=== PATIENT | female | born 1950 | race African-American/Black ===

== ENCOUNTER → 2017-10-20 | Day surgery (SDC) | payer MEDICARE ==
--- NOTE | 2017-10-21 11:56 | PATH ---
Surgical Pathology Report Patient Name: DONALDO GUERRERO [facility]. Rec. #: [id number] /Age/Gender: 1950 (Age: 67) / F Account: [id number] Location: [facility] Taken: 10/20/2017 Received: 10/20/2017 Reported: 10/21/2017 Physicians: Facundo Cummings M.D. Specimen(s) Received A: RIGHT BREAST SPECIMEN WITH CALCIFICATIONS B: RIGHT BREAST SPECIMEN WITHOUT CALCIFICATIONS Clinical History Nonpalpable lesion Mammographic findings: Microcalcification, suspicious Final Diagnosis A. 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 B. BREAST, RIGHT, WITHOUT CALCIFICATIONS, STEREOTACTIC BIOPSY: BENIGN BREAST TISSUE. Electronically Signed Roselia Rich M.D. Gross Description A. Received in formalin labeled "right breast with calcifications," are 4 flores-yellow, cylindrical portions of fibroadipose tissue ranging from 0.6-2.6 cm in length and averaging 0.2 cm in diameter. Entirely submitted in one cassette. B. Received in formalin labeled "right breast without calcifications," is a 2.2 x 1.6 x 0.3 cm aggregate of multiple flores-yellow, irregular to cylindrical portions of fibroadipose tissue. The formalin is filtered and the specimen is entirely submitted in one cassette. Time to formalin fixation: 5 minutes Total formalin fixation time: Approximately 6 hours. 10/20/201710/20/2017
== END | disposition home or self-care (01) ==
LOC: FMAMMOTONE 10:18
PROVIDERS: ATTEND Family Medicine
PROC: 0HBT3ZX Excision of Right Breast, Percutaneous Approach, Diagnostic (ICD-10-PCS; principal; 2017-10-20)
DX: D24.1 Benign neoplasm of right breast (principal); N64.89 Other specified disorders of breast; R92.1 Mammographic calcification found on diagnostic imaging of breast
CPT/HCPCS: 19081; 87899; 88305-TC; A4648

== ENCOUNTER 2018-07-06 16:08 | Inpatient (IN) | payer OTHER ==
[2018-07-06 16:28] VITALS: BMI 64.4
[2018-07-06] MEDS ORDERED: ALBUTEROL SO4 2.5/IPRATROPIUM 0.5 INH SOL 3 ML VIAL.NEB. NEB ONE ×4 (17:27→19:18)
[2018-07-06] MEDS ORDERED: LACTATED RINGERS SOLUTION 1000 ML INFUS.BAG IV ONE (17:46)
[2018-07-06 18:07] LABS: BASO % 0.7 % (0-2.0); EOS % 0.4 % (0-4.5); HEMOGLOBIN 13.8 GM/dL (10.7-15.3); MCHC 31.3 g/dl (32.0-36.0); MEAN CELL VOLUME 86.3 fl (80-96); MEAN PLT VOLUME 9.6 fl (7.5-11.1); NEUT % 54.9 % (42.8-82.8); PLATELET COUNT 173 K/MM3 (134-434); RDW 15.8 % (11.6-15.6); WHITE BLOOD COUNT 6.8 K/mm3 (4.0-10.0)
[2018-07-06] MEDS ORDERED: methylPREDNISolone NA SUCC 125 MG/2 ML VIAL IVPB ONE (18:08)
[2018-07-06] MEDS ORDERED: methylPREDNISolone NA SUCC 125 MG/2 ML VIAL ONE (18:09)
--- NOTE | 2018-07-06 18:12 | PDOC ---
Documentation entered by Kaylin Cuellar SCRIBE, acting as scribe for Cleo Bautista DO. Cleo Bautista DO: This documentation has been prepared by the Polo zimmerman Daisy, SCRIBE, under my direction and personally reviewed by me in its entirety. I confirm that the documentation accurately reflects all work, treatment, procedures, and medical decision making performed by me. Attending Attestation - Resident Resident Name: Nishant Bangura - ED Attending Attestation I have performed the following: I have examined & evaluated the patient, The case was reviewed & discussed with the resident, I agree w/resident's findings & plan - HPI HPI: 07/06/18 17:44 The patient is a 68 YOF with a PMH of DM, asthma, ID, and morbidly obese who presents to the ER for shortness of breath and cough productive of white sputum. She has been using her asthma pump at home, but did not use any nebulizers. Not on any home O2. She also admits to having a fever of 103 at home and last took Tylenol at 2PM. Denies any chest pain, leg swelling, N/V/D/C. Allergies: NKDA PCP: Dr. Nicole - Physicial Exam PE: 07/06/18 18:12 ADULT PHYSICAL EXAM Constitutional: Awake, alert, oriented. (+) conversational dyspnea. Cardiovascular: Regular rate. Regular rhythm. S1, S2 regular. Distal pulses are 2+ and symmetric. Pulmonary/Chest: (+) Tachypneic. (+) wheezing bilaterally. (+) rhonchorous breath sounds, right greater than left. Abdominal: (+) Morbidly obese. There is no tenderness. No rebound, guarding or rigidity. Good bowel sounds. Musculoskeletal: No edema in the legs. Skin: Skin is warm and dry. Neurological: Alert and oriented to person, place, and time. Cranial nerves II -XII are grossly intact. - Medical Decision Making 07/06/18 18:09 I, Dr. Cleo Bautista DO, attest that this document has been prepared under my direction and personally reviewed by me in its entirety. I further attest, that it accurately reflects all work, treatment, procedures and medical decision -making performed by me. 07/06/18 18:09 a/p: 68yo female with hx of asthma - last hospitalization last year with fever, cough white sputum and sob -will send labs -pt pulse ox 88 on 4L -does not wear home o2 -pt with conversational dyspnea and tachypnea -diffuse wheezing and rhonchi at the bases -concern for pna vs asthma with bronchitis - fever today of 103 at home, tylenol taken at 2p -will send labs, xray, ekg -will give nebs, steroids -will monitor and reassess 07/06/18 19:38 no elevated wbc chem pending hypoxic on abg with mild hypercapnic changes 07/06/18 20:01 cxr clear 07/06/18 22:20 pt with pna on ct still wheezing, still sob pulse ox 90 on 2L nc will give more albuterol and admit 07/06/18 22:20 iv abx ordered 07/06/18 22:38 microblog sent to [facility] for admission 07/06/18 22:51 case discussed with Heather who accepts pt for Dr. Portillo and [facility] covering Corey *DC/Admit/Observation/Transfer Diagnosis at time of Disposition: Asthma exacerbation, Hypoxia, Pneumonia - Discharge Dispostion Condition at time of disposition: Guarded Decision to Admit order: Yes - Referrals Referrals: Rupal Nicole MD [Primary Care Provider] - - Patient Instructions - Post Discharge Activity Heart Score/ECG Review - ECG Intrepretation Comment:: 07/06/18 19:39 sinus at 76, nl axis, nl interval, no acute st/t wave findings
[2018-07-06 18:26] LABS: ARTERIAL BLD GAS O2 SATURATION 87.2 % (95-98); ARTERIAL BLOOD GAS BASE EXCESS 3.6 meq/l (-2-2); ARTERIAL BLOOD GAS PCO2 61.6 mmHg (35-45); ARTERIAL BLOOD GAS PO2 58.6 mmHg (80-105); ARTERIAL BLOOD GAS pH 7.32 (7.35-7.45); CARBOXYHEMOGLOBIN 2.4 % (0-2)
[2018-07-06 18:28] LABS: ALLENS TEST POSITIVE
--- NOTE | 2018-07-06 18:58 | PDOC ---
History of Present Illness - General Chief Complaint: Shortness of Breath Stated Complaint: SHORTNESS OF BREATH Time Seen by Provider: 07/06/18 16:49 History Source: Patient, Old Records Exam Limitations: No Limitations - History of Present Illness Initial Comments: HPI: 68 y/o female BIBEMS to [facility] ER complaining of shortness of breath for the past several days. Endorses a productive cough with white sputum. Denies color change. Endorses fever to 103 at home today that resolved after taking Tylenol. Denies chest pain, neck pain, arm pain, or back pain. Has a h/o of asthma. Has been taking her medications as prescribed. Sought emergency care today at the urging of family after symptoms failed to resolve. Found to be hypoxic on room air by EMS. Initiated supplemental oxygen therapy. Did not administer any other medications. RN reports observing pt desat to 88% on room air while transferring to ED bed. Echo Mar 2018 revealed normal EF. Pt was admitted to this facility once in 2011 for asthma exacerbation. PCP: Dr. Nicole Social Hx: - Active everyday tobacco smoker Medical Hx: - Asthma - CAD S/p CA 2000 - Diabetes - Morbid obesity Review of Systems: In addition to that documented in the HPI above, the additional ROS was obtained : Constitutional: Endorses fevers or chills Head: Denies vision changes ENMT: Denies sore throat CV: Denies chest pain Resp: Per HPI GI: Denies vomiting or diarrhea : Denies painful urination MSK: Denies recent trauma Skin: Denies new rashes Neuro: Denies new numbness or tingling or weakness Endocrine: Denies polyuria Heme: Denies bleeding or bruising Physical Examination: Constitutional: Well-developed, well-nourished adult female in no acute distress or obvious discomfort. Obese body habitus. Found semi-fowlers on hospital bed. Alert and oriented x4. Answered all questions appropriately and completely. Speech was non-labored, non-pressured. Head: Normocephalic. No obvious external signs of trauma. Neck: Supple, trachea is midline. Cardiovascular / Chest: Regular rate and regular rhythm. No murmur, rubs, clicks, or gallops. Peripheral pulses: radial pulses full. No anterior chest wall tenderness. Respiratory: Tachypneic breathing without retractions. Equal chest rise and fall. Diffuse rhonchi and wheezing bilaterally. Gastrointestinal: abdomen is soft, non-tender, non-distended. Neuro: Alert and oriented. Moving all four extremities spontaneously. Skin: Warm, dry, and intact. Psych: Affect: appropriate. Mood: normal. MDM: *Reviewed vital signs, nursing notes, and prior visit documentation (if available). 68 y/o female w/ history significant for asthma presenting for worsening SOB, fever, and cough productive of white sputum. Hypoxic on room air, which improves with supplemental oxygen. Afebrile on arrival. Vitals unremarkable for hypotension or tachycardia. Physical exam as described above. Suspect possible moderately severe asthma exacerbation versus acute bronchitis versus pneumonia. CXR unremarkable for acute pulmonary pathology but limited secondary to body habitus. Will obtain CT of chest for better visualization. This pt does not frequently present to this facility. Acute respiratory acidosis noted on ABG. Chest CT revealed infiltrates in right middle lobe suggestive for pneumonia. Added Ceftriaxone to antibiotic regimen. Will admit pt for pneumonia causing acute hypoxia. ED Attending admitted pt to hospitalist service. Past History - Past Medical History Allergies/Adverse Reactions: Allergies Allergy/AdvReac Type Severity Reaction Status Date / Time No Known Allergies Allergy Verified 05/24/18 09:38 Home Medications: Ambulatory Orders Albuterol 0.083% Nebulizer Jyoti [Ventolin 0.083% Nebulizer Soln -] 1 neb NEB DAILY PRN 02/05/12 Acetaminophen [Tylenol .Regular Strength -] 650 mg PO Q8H PRN #0 tablet Aspirin [ASA -] 81 mg PO DAILY #0 tab.chew 02/16/12 Docusate Sodium [Colace -] 100 mg PO DAILY #0 capsule 02/16/12 Guaifenesin AC [Robitussin AC -] 5 ml PO Q6H PRN #0 liquid 02/16/12 Montelukast Na [Singulair -] 10 mg PO HS #0 tablet 02/16/12 Pantoprazole Sodium [Protonix -] 40 mg PO DAILY #0 tablet.ec 02/16/12 Tiotropium [place] [Spiriva] 1 inh IH DAILY #0 inh 02/16/12 levoFLOXacin [Levaquin -] 500 mg PO DAILY@0600 #3 tablet 02/16/12 predniSONE [Deltasone -] 5 mg PO BID #40 tablet 02/16/12 Asthma: Yes Cardiac Disorders: Yes (CA 2000) - Surgical History Abdominal Surgery: No Appendectomy: No Cardiac Surgery: No Cholecystectomy: No - Suicide/Smoking/Psychosocial Hx Smoking Status: Yes Smoking History: Current some day smoker Have you smoked in the past 12 months: No Number of Cigarettes Smoked Daily: 5 Information on smoking cessation initiated: No 'Breaking Loose' booklet given: 02/06/12 Hx Alcohol Use: No Drug/Substance Use Hx: No Substance Use Type: None Hx Substance Use Treatment: No *Physical Exam - Vital Signs Last Vital Signs Temp Pulse Resp BP Pulse Ox 98.1 F 74 20 111/57 L 91 L 07/06/18 16:23 07/06/18 16:25 07/06/18 16:23 07/06/18 16:23 07/06/18 16:25 Vital Signs - Vital Signs #1 Blood Pressure: 145/78 MAP: 100 BP Location: Right Arm Blood Pressure Position: Sitting Pulse Rate: 75 (SPO2 91% on 4 LPM via nasal cannula) ED Treatment Course - LABORATORY CBC & Chemistry Diagram: 07/06/18 17:37 07/06/18 17:37 - ADDITIONAL ORDERS Additional order review: Laboratory Results 07/06/18 07/06/18 18:09 17:37 Anticoagulation Therapy No Result Required. Puncture Site No Result Required. ABG pH 7.32 L ABG pCO2 at Pt Temp 61.6 H ABG pO2 at Pt Temp 58.6 L ABG HCO3 31.0 H ABG O2 Sat (Measured) 87.2 L ABG O2 Content 17.2 ABG Base Excess 3.6 H Anthony Test Positive Carboxyhemoglobin 2.4 H Methemoglobin 0.3 O2 Delivery Device No Result Required. Oxygen Flow Rate No Result Required. Vent Mode No Result Required. Vent Rate No Result Required. Mechanical Rate No Result Required. Pressure Support Vent No Result Required. Sodium Cancelled Potassium Cancelled Chloride Cancelled Carbon Dioxide Cancelled Anion Gap Cancelled BUN Cancelled Creatinine Cancelled Est GFR (CKD-EPI)AfAm Cancelled Est GFR (CKD-EPI)NonAf Cancelled Random Glucose Cancelled Calcium Cancelled Total Bilirubin Cancelled AST Cancelled ALT Cancelled Alkaline Phosphatase Cancelled Total Protein Cancelled Albumin Cancelled 07/06/18 17:37 RBC 5.10 MCV 86.3 MCHC 31.3 L RDW 15.8 H MPV 9.6 D Neutrophils % 54.9 Lymphocytes % 31.0 Monocytes % 13.0 H Eosinophils % 0.4 Basophils % 0.7 - RADIOLOGY Radiology Studies Ordered: Category Date Time Status CXRPORT [CHEST X-RAY PORTABLE*] [RAD] Stat Radiology 07/06/18 17:26 Completed - Medications Given in the ED: ED Medications Discontinued Medications Generic Name Dose Route Start Last Admin Trade Name Freq PRN Reason Stop Dose Admin Albuterol/Ipratropium 1 amp 07/06/18 17:27 07/06/18 17:38 Duoneb - NEB 07/06/18 17:28 1 amp ONCE ONE Administration Albuterol/Ipratropium 1 amp 07/06/18 17:45 07/06/18 17:57 Duoneb - NEB 07/06/18 17:46 1 amp ONCE ONE Administration Lactated Ringer's 1,000 ml 07/06/18 17:46 07/06/18 17:57 Lactated Ringers Solution IV 07/06/18 17:47 1,000 ml ONCE ONE Administration Methylprednisolone Sodium Succinate 125 mg 07/06/18 18:08 07/06/18 18:29 Solu-Medrol - IVPB 07/06/18 18:09 125 mg ONCE ONE Administration *DC/Admit/Observation/Transfer Diagnosis at time of Disposition: Hypoxia Asthma exacerbation Qualifiers: Asthma severity: moderate Asthma persistence: unspecified Qualified Code(s): J45.901 - Unspecified asthma with (acute) exacerbation Pneumonia Qualifiers: Pneumonia type: due to unspecified organism Laterality: right Lung location: middle lobe of lung Qualified Code(s): J18.1 - Lobar pneumonia, unspecified organism - Discharge Dispostion Condition at time of disposition: Guarded - Referrals - Patient Instructions - Post Discharge Activity
[2018-07-06] MEDS ORDERED: AZITHROMYCIN 250 MG TABLET PO ONE (19:05)
[2018-07-06] MEDS ORDERED: AZITHROMYCIN 250 MG TABLET ONE (19:19)
[2018-07-06] MEDS ORDERED: ACETAMINOPHEN 325 MG TABLET (FP) PO ONE (20:01)
[2018-07-06 20:19] LABS: ALBUMIN 3.6 g/dl (3.4-5.0); BILIRUBIN,TOTAL 0.4 mg/dL (0.2-1); CALCIUM 9.1 mg/dL (8.5-10.1); N-TERMINAL BNP 172.7 pg/ml (5-125); POTASSIUM 4.4 mmol/L (3.5-5.1); TOT PROT 7.8 g/dl (6.4-8.2)
[2018-07-06] MEDS ORDERED: ACETAMINOPHEN 325 MG TABLET (FP) ONE (20:38)
[2018-07-06] MEDS ORDERED: CEFTRIAXONE 1,000 MG in DEXTROSE 5%-WATER - 50 ML IVPB ONE (22:02)
[2018-07-06] MEDS ORDERED: ALPRAZolam 0.25 MG TABLET PO ONE (23:28)
--- NOTE | 2018-07-06 23:28 | HP ---
CHIEF COMPLAINT: cough with white phlegm for 2 days and shortness of breath PCP:Dr. Nicole HISTORY OF PRESENT ILLNESS: 68 year old morbid obese female with history of hyperlipidemia, hypertension, diabetes mellitus, COPD(asthma/emphysema), not on home oxygen therapy, ongoing tobacco use, and possible CAD as she is planned for coronary angiogram arranged for next week at [facility] to exclude CAD who presents with symptoms of shortness of breath,cough with sputum for the past 2 days and fever of 103 and took Tylenol today at 2pm . On presentation to ER she had hypoxia. CT scan of chest demonstrated a pneumonia. She was given 3 duo nebulizer treatments, IV solumedrol and initiated on IV antibiotic therapy with Rocephin and Azithromycin. She denied any symptoms of chest discomfort. She is being admitted to the Medicine Service for further medical management. Recent Travel: denies PAST MEDICAL HISTORY: hyperlipidemia hypertension diabetes mellitus COPD(asthma/emphysema) PAST SURGICAL HISTORY: none Social History: Smoking:yes Alcohol:no Drugs: no Family History: noncontributory Allergies No Known Allergies Allergy (Verified 05/24/18 09:38) HOME MEDICATIONS: Home Medications Medication Instructions Recorded Albuterol 0.083% Nebulizer Jyoti 1 neb NEB DAILY PRN 02/05/12 [Ventolin 0.083% Nebulizer Soln -] Acetaminophen [Tylenol .Regular 650 mg PO Q8H PRN #0 tablet 02/16/12 Strength -] Aspirin [ASA -] 81 mg PO DAILY #0 tab.chew 02/16/12 Docusate Sodium [Colace -] 100 mg PO DAILY #0 capsule 02/16/12 Guaifenesin AC [Robitussin AC -] 5 ml PO Q6H PRN #0 liquid 02/16/12 Montelukast Na [Singulair -] 10 mg PO HS #0 tablet 02/16/12 Pantoprazole Sodium [Protonix -] 40 mg PO DAILY #0 tablet.ec 02/16/12 Tiotropium [place] [Spiriva] 1 inh IH DAILY #0 inh 02/16/12 levoFLOXacin [Levaquin -] 500 mg PO DAILY@0600 #3 tablet 02/16/12 predniSONE [Deltasone -] 5 mg PO BID #40 tablet 02/16/12 REVIEW OF SYSTEMS CONSTITUTIONAL: Absent: fever, chills, diaphoresis, generalized weakness, malaise, loss of appetite, weight change HEENT: Absent: rhinorrhea, nasal congestion, throat pain, throat swelling, difficulty swallowing, mouth swelling, ear pain, eye pain, visual changes CARDIOVASCULAR: Absent: chest pain, syncope, palpitations, irregular heart rate, lightheadedness , peripheral edema RESPIRATORY: Absent: cough, shortness of breath, dyspnea with exertion, orthopnea, wheezing, stridor, hemoptysis GASTROINTESTINAL: Absent: abdominal pain, abdominal distension, nausea, vomiting, diarrhea, constipation, melena, hematochezia GENITOURINARY: Absent: dysuria, frequency, urgency, hesitancy, hematuria, flank pain, genital pain MUSCULOSKELETAL: Absent: myalgia, arthralgia, joint swelling, back pain, neck pain SKIN: Absent: rash, itching, pallor HEMATOLOGIC/IMMUNOLOGIC: Absent: easy bleeding, easy bruising, lymphadenopathy, frequent infections ENDOCRINE: Absent: unexplained weight gain, unexplained weight loss, heat intolerance, cold intolerance NEUROLOGIC: Absent: headache, focal weakness or paresthesias, dizziness, unsteady gait, seizure, mental status changes, bladder or bowel incontinence PSYCHIATRIC: Absent: anxiety, depression, suicidal or homicidal ideation, hallucinations. PHYSICAL EXAMINATION Vital Signs - 24 hr 07/06/18 07/06/18 07/06/18 16:23 16:25 19:34 Temperature 98.1 F Pulse Rate 74 74 Pulse Rate [#1] 75 Respiratory 20 Rate Blood Pressure 111/57 L Blood Pressure 145/78 [#1] O2 Sat by Pulse 91 L 91 L Oximetry (%) GENERAL: awake, alert, and fully oriented no acute distress HEAD: normal EYES: pupils equal round and reactive to light EARS, NOSE, THROAT: ears normal nares patent oropharynx clear without exudates NECK:supple no JVD LUNGS:+ wheezing no use of accessory muscles no rales nonlabored breathing effort HEART: regular rate and rhythm normal S1 and S2 ABDOMEN: soft and large no acute abdomen nontender MUSCULOSKELETAL:limited range of motion of lower extremities ambulates with a cane UPPER EXTREMITIES: 2+ pulses warm well-perfused no cyanosis LOWER EXTREMITIES: 2+ pulses warm well-perfused no pitting edema NEUROLOGICAL:normal speech Mood: good eye contact appropriate mood and affect SKIN: warm dry normal turgor no rashes or lesions noted normal capillary refill Laboratory Results - last 24 hr 05/11/1607/06/18 07/06/18 17:37 17:37 17:37 WBC 6.8 RBC 5.10 Hgb 13.8 Hct 44.0 MCV 86.3 MCH 27.0 MCHC 31.3 L RDW 15.8 H Plt Count 173 MPV 9.6 D Absolute Neuts (auto) 3.7 Neutrophils % 54.9 Lymphocytes % 31.0 Monocytes % 13.0 H Eosinophils % 0.4 Basophils % 0.7 Nucleated RBC % 0 Anticoagulation Therapy Puncture Site ABG pH ABG pCO2 at Pt Temp ABG pO2 at Pt Temp ABG HCO3 ABG O2 Sat (Measured) ABG O2 Content ABG Base Excess Anthony Test Carboxyhemoglobin Methemoglobin O2 Delivery Device Oxygen Flow Rate Vent Mode Vent Rate Mechanical Rate Pressure Support Vent Sodium Cancelled 138 Potassium Cancelled 4.4 Chloride Cancelled 102 Carbon Dioxide Cancelled 31 Anion Gap Cancelled 6 L BUN Cancelled 15 Creatinine Cancelled 1.0 Est GFR (CKD-EPI)AfAm Cancelled 67.51 Est GFR (CKD-EPI)NonAf Cancelled 58.25 Random Glucose Cancelled 109 H Calcium Cancelled 9.1 Total Bilirubin Cancelled 0.4 AST Cancelled 28 ALT Cancelled 22 Alkaline Phosphatase Cancelled 87 Troponin I 0.04 B-Natriuretic Peptide 172.7 H Total Protein Cancelled 7.8 Albumin Cancelled 3.6 07/06/18 18:09 WBC RBC Hgb Hct MCV MCH MCHC RDW Plt Count MPV Absolute Neuts (auto) Neutrophils % Lymphocytes % Monocytes % Eosinophils % Basophils % Nucleated RBC % Anticoagulation Therapy No Result Required. Puncture Site No Result Required. ABG pH 7.32 L ABG pCO2 at Pt Temp 61.6 H ABG pO2 at Pt Temp 58.6 L ABG HCO3 31.0 H ABG O2 Sat (Measured) 87.2 L ABG O2 Content 17.2 ABG Base Excess 3.6 H Anthony Test Positive Carboxyhemoglobin 2.4 H Methemoglobin 0.3 O2 Delivery Device No Result Required. Oxygen Flow Rate No Result Required. Vent Mode No Result Required. Vent Rate No Result Required. Mechanical Rate No Result Required. Pressure Support Vent No Result Required. Sodium Potassium Chloride Carbon Dioxide Anion Gap BUN Creatinine Est GFR (CKD-EPI)AfAm Est GFR (CKD-EPI)NonAf Random Glucose Calcium Total Bilirubin AST ALT Alkaline Phosphatase Troponin I B-Natriuretic Peptide Total Protein Albumin ASSESSMENT/PLAN: 68 year old morbidly obese female with history of hyperlipidemia, hypertension, diabetes mellitus, COPD(asthma/emphysema),not on home oxygen therapy, ongoing tobacco use, and possible CAD as she is planned for coronary angiogram as arranged for next week at [facility] to exclude CAD who presents with symptoms of shortness of breath and cough with sputum for the past 2 days and on presentation to ER with hypoxia. She had no evidence of tachycardia. She was febrile with a temperature of 103. She was found to have a pneumonia and an asthma exacerbation. She is being admitted to the Medicine Service for further medical treatment. Shortness of breath secondary to Pneumonia Currently afebrile, no leukocytosis.BNP 172. CT scan of chest demonstrated pneumonia, a paratracheal lymph node and a trace pericardial effusion, no evidence of hypotension - continue with IV Azithromycin and Ceftriaxone Asthma Exacerbation/History COPD Oxygen saturation ranging in the low 90's on 4 liters by nasal canula -Continue with IV solumedrol -Continue with albuterol nebulizer treatments every 6 hours -Pulmonary -Dr. Gupta consulted for management Hypertension -SBP 110-140's, currently on no home meds -continue to monitor blood pressure closely and would add antihypertensive therapy if blood pressures remain borderline elevated Diabetes Mellitus -Accucheks before meals and at bedtime -Insulin as per sliding scale Hyperlipidemia - currently on no lipid lowering agents - check fasting lipid panel in am Possible CAD due to Risk Factors Asymptomatic of angina. She is euvolemic on exam. Troponin is normal. Pending coronary angiogram as arranged in outpatient setting for next week at [facility]. -continue with aspirin. DVT -lovenox 40 mg once daily for prophylaxsis. TEDS and SCD's FEN ADA diet, low sodium, heart healthy diet Visit type - Emergency Visit Emergency Visit: No - New Patient This patient is new to me today: Yes Date on this admission: 07/07/18 - Critical Care Critical Care patient: No
[2018-07-07] MEDS ORDERED: ALBUTEROL SO4 0.083% IH SOL 2.5 MG/3 ML VIAL.NEB. NEB ONE ×2 (00:21→09:33)
[2018-07-07] MEDS ORDERED: ALPRAZolam 0.25 MG TABLET ONE (00:22)
[2018-07-07] MEDS ORDERED: CEFTRIAXONE 1 GM/50 ML BAG ONE (00:22)
[2018-07-07] MEDS: ALBUTEROL SO4 0.083% IH SOL 2.5 MG/3 ML VIAL.NEB. NEB SCH ×9 (01:07→20:28)
[2018-07-07] MEDS ORDERED: ALBUTEROL SO4 2.5/IPRATROPIUM 0.5 INH SOL 3 ML VIAL.NEB. NEB ONE (02:17)
[2018-07-07] MEDS ORDERED: methylPREDNISolone NA SUCC 40 MG/1 ML VIAL ONE (05:08)
[2018-07-07] MEDS: methylPREDNISolone NA SUCC 40 MG/1 ML VIAL IVPUSH SCH ×4 (05:51→22:33)
[2018-07-07 09:43] LABS: HEMATOCRIT 45.1 % (32.4-45.2); HEMOGLOBIN 14.1 GM/dL (10.7-15.3); MCH 27.2 pg (25.7-33.7); MCHC 31.2 g/dl (32.0-36.0); MEAN CELL VOLUME 87.1 fl (80-96); MEAN PLT VOLUME 9.2 fl (7.5-11.1); PLATELET COUNT 168 K/MM3 (134-434); RBC 5.18 M/mm3 (3.60-5.2); RDW 15.5 % (11.6-15.6); WHITE BLOOD COUNT 5.9 K/mm3 (4.0-10.0)
[2018-07-07] MEDS: DOCUSATE SODIUM 100 MG CAPSULE (FP) PO SCH (09:50)
[2018-07-07] MEDS: ASPIRIN 81 MG CHEWABLE TABLETS PO SCH (09:50)
[2018-07-07] MEDS: CEFTRIAXONE 1 GM in DEXTROSE 5%-WATER - 50 ML IVPB SCH (09:51)
[2018-07-07] MEDS: PANTOPRAZOLE 40 MG TABLET (FP) PO SCH (09:51)
[2018-07-07] MEDS: ENOXAPARIN NA (PORCINE) 40 MG/0.4 ML DISP.SYRIN SQ SCH (09:51)
[2018-07-07 10:05] LABS: CALCIUM 9.6 mg/dL (8.5-10.1); MAGNESIUM 2.7 mg/dL (1.8-2.4); POTASSIUM 4.8 mmol/L (3.5-5.1)
[2018-07-07 10:06] LABS: CHOLESTEROL 162 mg/dL (50-200); HDL CHOLESTEROL 56 mg/dL (40-60); TRIGLYCERIDES 79 mg/dL (0-150)
--- NOTE | 2018-07-07 11:49 | PN ---
Progress Note, Physician Chief Complaint: patient seen and examined in ER getting nebulizer treatment complaining of cough - Current Medication List Current Medications: Active Medications Albuterol Sulfate (Ventolin 0.083% Nebulizer Soln -) 1 amp NEB RQID [facility] Last Admin: 07/07/18 09:15 Dose: 1 amp Aspirin (Asa -) 81 mg PO DAILY [facility] Last Admin: 07/07/18 09:50 Dose: 81 mg Docusate Sodium (Colace -) 100 mg PO DAILY [facility] Last Admin: 07/07/18 09:50 Dose: 100 mg Enoxaparin Sodium (Lovenox -) 40 mg SQ DAILY [facility] Last Admin: 07/07/18 09:51 Dose: 40 mg Ceftriaxone Sodium 1 gm/ (Dextrose) 50 mls @ 100 mls/hr IVPB DAILY [facility]; Protocol Last Admin: 07/07/18 09:51 Dose: 100 mls/hr Azithromycin 250 mg/ Dextrose 250 mls @ 250 mls/hr IVPB DAILY [facility] Methylprednisolone Sodium Succinate (Solu-Medrol -) 40 mg IVPUSH Q6H-IV [facility] Last Admin: 07/07/18 09:30 Dose: 40 mg Montelukast Sodium (Singulair -) 10 mg PO HS [facility] Pantoprazole Sodium (Protonix -) 40 mg PO DAILY [facility] Last Admin: 07/07/18 09:51 Dose: 40 mg - Objective Vital Signs: Vital Signs Temperature 97.9 F 07/07/18 02:28 Pulse Rate 79 07/07/18 11:00 Respiratory Rate 20 07/07/18 11:00 Blood Pressure 104/63 07/07/18 11:00 O2 Sat by Pulse Oximetry (%) 91 L 07/07/18 11:00 Constitutional: Yes: Calm Cardiovascular: Yes: Regular Rate and Rhythm, S1, S2 Respiratory: Yes: Diminished Gastrointestinal: Yes: Normal Bowel Sounds, Soft Edema: No Neurological: Yes: Alert, Oriented Labs: CBC, BMP 07/07/18 09:00 07/07/18 09:00 Problem List - Problems (1) COPD exacerbation Assessment/Plan: oxygen keep saturation > 90% singulair iv medrol iv abx for pna nebulizer pulm consult ct chest noted Code(s): J44.1 - CHRONIC OBSTRUCTIVE PULMONARY DISEASE W (ACUTE) EXACERBATION (2) Pneumonia Assessment/Plan: chest ct noted iv abx ID and pulm eval Code(s): J18.9 - PNEUMONIA, UNSPECIFIED ORGANISM Qualifiers: Pneumonia type: due to unspecified organism Laterality: right Lung location: middle lobe of lung Qualified Code(s): J18.1 - Lobar pneumonia, unspecified organism (3) Diabetes Assessment/Plan: m slding scale hgba1c diabetic diet Code(s): E11.9 - TYPE 2 DIABETES MELLITUS WITHOUT COMPLICATIONS Qualifiers: Diabetes mellitus type: type 2
[2018-07-07] MEDS: AZITHROMYCIN IVPB 250 MG in DEXTROSE 5%-WATER - 250 ML IVPB SCH (12:17)
--- NOTE | 2018-07-07 12:28 | PN ---
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 CULTURES AMBULATORY O2 SAT ON RA PRIOR TO DISCHARGE TO DETERMINE IF PT IS A CANDIDATE FOR HOME O2 F/U ABG ON RA F/U CHEST X-RAYS TO CONFIRM RESOLUTION OF INFILTRATES SMOKING CESSATION COUNSELED DR TAO Problem List - Problems (1) Acute respiratory failure with hypoxia and hypercarbia Code(s): J96.01 - ACUTE RESPIRATORY FAILURE WITH HYPOXIA; J96.02 - ACUTE RESPIRATORY FAILURE WITH HYPERCAPNIA (2) COPD exacerbation Code(s): J44.1 - CHRONIC OBSTRUCTIVE PULMONARY DISEASE W (ACUTE) EXACERBATION (3) Diabetes Code(s): E11.9 - TYPE 2 DIABETES MELLITUS WITHOUT COMPLICATIONS Qualifiers: Diabetes mellitus type: type 2 (4) Hypoxia Code(s): R09.02 - HYPOXEMIA (5) Pneumonia Code(s): J18.9 - PNEUMONIA, UNSPECIFIED ORGANISM Qualifiers: Pneumonia type: due to unspecified organism Laterality: right Lung location: middle lobe of lung Qualified Code(s): J18.1 - Lobar pneumonia, unspecified organism (6) Sleep apnea Code(s): G47.30 - SLEEP APNEA, UNSPECIFIED
--- NOTE | 2018-07-07 13:54 | CONS ---
PULMONARY CONSULTATION DATE OF CONSULTATION: 07/07/2018 REFERRING PHYSICIAN: Andre Swartz MD HISTORY OF PRESENT ILLNESS: The patient is a 68-year-old, black female with past medical history of diabetes, ASHD, morbid obesity, obstructive sleep apnea on CPAP at home not fully compliant, advanced COPD, hypertension, long-standing history of tobacco use, currently still smoking, hyperlipidemia, admitted to [facility] with complaint of a 2-day history of increasing shortness of breath, cough productive of thick, white sputum, fever, and chills. The patient apparently had a fever of 100.3. She took Tylenol secondary to the above. She denied any chest pain, nausea, vomiting or diaphoresis. She denied any hemoptysis. She started developing progressive shortness of breath, at which time presented to the emergency room. In the ER, she was noted on CT to have bilateral infiltrates. She was also noted to be hypercapnic, hypoxemic, and placed on supplemental O2. As stated before, she has a long-standing history of COPD, maintained on inhaled bronchodilators, not currently on home O2. There is no history of occupational exposure to chemicals or fumes. There is no history of recent travel. On admission, she was started on inhaled bronchodilators, antibiotic therapy, and IV steroids. PAST MEDICAL HISTORY: Again includes hypertension, hyperlipidemia, diabetes, advanced COPD, obstructive sleep apnea, ASHD with apparently a plan for a coronary angiogram next week. REVIEW OF SYSTEMS: Positive orthopnea. Positive dyspnea. Positive cough. Positive fever. Positive chills. No nausea. No vomiting. No hemoptysis. CURRENT MEDICATIONS: Include Solu-Medrol, Zithromax, ceftriaxone, Lovenox, albuterol, Colace, NovoLog, Singulair, aspirin, and Protonix. PHYSICAL EXAMINATION: General: The patient is a morbidly obese female, well developed, awake, alert, in no acute distress. Vital Signs: She is currently afebrile. T-maximum is 99.1, blood pressure is 104/63, respiratory rate is 20, O2 saturation is 98% on 4 L. HEENT: Exam is normocephalic, atraumatic. Neck: Supple. Heart: Regular S1 and S2. Chest: Diffuse bilateral wheezes. Abdomen: Soft. Bowel sounds are positive. Extremities: Trace bilateral lower extremity edema. LABORATORIES: WBC is 5.9, hemoglobin 14.1, hematocrit 45.1, and platelet count 168,000. Blood gas: PH is 7.32, PCO2 of 61, a PO2 of 58, a bicarbonate of 31, a saturation of 87. BUN 17, creatinine 1. BNP is 172. IMAGING: Chest CT again revealed scattered airspace opacities in the upper lobes, subsegmental atelectasis, and infiltrates right middle lobe. IMPRESSION: Acute, likely chronic hypercapnic/hypoxemic respiratory failure, secondary to: 1. Advanced chronic obstructive pulmonary disease with acute exacerbation. 2. Pneumonia. 3. History of congestive heart failure. 4. History of diabetes. 5. Hypertension. 6. Obstructive sleep apnea. Likely obesity hypoventilation syndrome. 7. Morbid obesity. 8. Tobacco abuse. PLAN: IV steroids. Inhaled bronchodilators. Antibiotics. Supplemental O2. Obtain cultures. Monitor electrolytes. BiPAP at night. ambulatory O2 saturation on room air prior to discharge to determine if patient is a candidate for home O2. Obtain followup ABG on room air prior to discharge. Obtain followup chest x- ray to confirm resolution of infiltrates, as well as followup chest CT in the outpatient in 4-6 weeks to confirm resolution of infiltrates, and smoking-cessation counseled. JUAN DANIEL TAO M.D. [id number] MTDD
--- NOTE | 2018-07-07 14:57 | EKG ---
Test Reason : Blood Pressure : / mmHG Vent. Rate : 076 BPM Atrial Rate : 076 BPM P-R Int : 150 ms QRS Dur : 086 ms QT Int : 398 ms P-R-T Axes : 011 046 049 degrees QTc Int : 447 ms NORMAL SINUS RHYTHM WHEN COMPARED WITH ECG OF 05-FEB-2012 17:40, NO SIGNIFICANT CHANGE WAS FOUND Confirmed by PACHECO OCHOA MD ([id number]) on 07/07/2018 2:57:06 PM Referred By: Confirmed By:PACHECO OCHOA MD
[2018-07-07] MEDS: INSULIN SLIDING SCALE (NOVOLOG) 1 VIAL SQ SCH ×2 (17:32→22:32)
[2018-07-07] MEDS: MONTELUKAST NA 10 MG TABLET PO SCH (22:31)
[2018-07-07] MEDS: guaiFENesin 200 MG/10 ML 10 ML UNIT-DOSE CUPS PO PRN (22:33)
[2018-07-08] MEDS: methylPREDNISolone NA SUCC 40 MG/1 ML VIAL IVPUSH SCH ×4 (04:03→21:10)
[2018-07-08] MEDS: INSULIN SLIDING SCALE (NOVOLOG) 1 VIAL SQ SCH ×4 (06:29→21:10)
[2018-07-08 07:58] LABS: BASO % 0.2 % (0-2.0); HEMATOCRIT 46.6 % (32.4-45.2); HEMOGLOBIN 14.5 GM/dL (10.7-15.3); LYMPH % 7.2 % (8-40); MCH 27.3 pg (25.7-33.7); MCHC 31.1 g/dl (32.0-36.0); MEAN PLT VOLUME 9.6 fl (7.5-11.1); MONO % 5.8 % (3.8-10.2); NEUT % 86.8 % (42.8-82.8); PLATELET COUNT 177 K/MM3 (134-434); RDW 15.9 % (11.6-15.6); WHITE BLOOD COUNT 10.7 K/mm3 (4.0-10.0)
[2018-07-08 08:22] LABS: ALBUMIN 3.4 g/dl (3.4-5.0); BILIRUBIN,TOTAL 0.2 mg/dL (0.2-1); CALCIUM 9.7 mg/dL (8.5-10.1); POTASSIUM 5.3 mmol/L (3.5-5.1)
[2018-07-08] MEDS ORDERED: cefTRIAXone SODIUM 1 GM VIAL ONE (08:22)
[2018-07-08] MEDS ORDERED: DEXTROSE 5%-WATER - 50 ML IVPB ONE (08:22)
[2018-07-08] MEDS: ALBUTEROL SO4 0.083% IH SOL 2.5 MG/3 ML VIAL.NEB. NEB SCH ×2 (08:26→11:55)
[2018-07-08] MEDS: CEFTRIAXONE 1 GM in DEXTROSE 5%-WATER - 50 ML IVPB SCH (09:03)
[2018-07-08] MEDS: PANTOPRAZOLE 40 MG TABLET (FP) PO SCH (09:04)
[2018-07-08] MEDS: DOCUSATE SODIUM 100 MG CAPSULE (FP) PO SCH (09:04)
[2018-07-08] MEDS: ASPIRIN 81 MG CHEWABLE TABLETS PO SCH (09:04)
[2018-07-08] MEDS: ENOXAPARIN NA (PORCINE) 40 MG/0.4 ML DISP.SYRIN SQ SCH (09:05)
--- NOTE | 2018-07-08 11:00 | PN ---
Progress Note, Physician Chief Complaint: COPD Exacerbation Pneumonia Diabetes mellitus History of Present Illness: SOB at rest and exertional Seen by pulmonary CT Chest + Pneumonia - Current Medication List Current Medications: Active Medications Albuterol Sulfate (Ventolin 0.083% Nebulizer Soln -) 1 amp NEB RQID [facility] [place] Last Admin: 07/08/18 08:26 Dose: 1 amp Aspirin (Asa -) 81 mg PO DAILY [facility] Last Admin: 07/08/18 09:04 Dose: 81 mg Docusate Sodium (Colace -) 100 mg PO DAILY [facility] Last Admin: 07/08/18 09:04 Dose: 100 mg Enoxaparin Sodium (Lovenox -) 40 mg SQ DAILY [facility] Last Admin: 07/08/18 09:05 Dose: 40 mg Guaifenesin (Robitussin -) 10 ml PO Q4H PRN PRN Reason: COUGH Last Admin: 07/07/18 22:33 Dose: 10 ml Ceftriaxone Sodium 1 gm/ (Dextrose) 50 mls @ 100 mls/hr IVPB DAILY [facility]; Protocol Last Admin: 07/08/18 09:03 Dose: 100 mls/hr Azithromycin 250 mg/ Dextrose 250 mls @ 250 mls/hr IVPB DAILY [facility] Last Admin: 07/07/18 12:17 Dose: 250 mls/hr Insulin Aspart (Novolog Vial Sliding Scale -) 1 vial SQ ACHS [facility] [place]; Protocol Last Admin: 07/08/18 06:29 Dose: Not Given Methylprednisolone Sodium Succinate (Solu-Medrol -) 40 mg IVPUSH Q6H-IV [facility] Last Admin: 07/08/18 09:03 Dose: 40 mg Montelukast Sodium (Singulair -) 10 mg PO HS [facility] Last Admin: 07/07/18 22:31 Dose: 10 mg Pantoprazole Sodium (Protonix -) 40 mg PO DAILY [facility] Last Admin: 07/08/18 09:04 Dose: 40 mg - Objective Vital Signs: Vital Signs Temperature 97.8 F 07/08/18 09:48 Pulse Rate 70 07/08/18 09:48 Respiratory Rate 20 07/08/18 09:48 Blood Pressure 128/54 L 07/08/18 09:48 O2 Sat by Pulse Oximetry (%) 94 L 07/07/18 22:00 Constitutional: Yes: Well Nourished, No Distress, Calm, Obese Cardiovascular: Yes: Regular Rate and Rhythm Respiratory: Yes: On Nasal O2, Rhonchi (diffuse), SOB, SOB on Exertion, Wheezes (diffuse) Gastrointestinal: Yes: Normal Bowel Sounds, Soft, Abdomen, Obese Genitourinary: Yes: WNL Musculoskeletal: Yes: WNL Extremities: Yes: WNL Edema: No Peripheral Pulses WNL: Yes Neurological: Yes: Alert, Oriented Psychiatric: Yes: Alert, Oriented Labs: CBC, BMP 07/08/18 07:10 07/08/18 07:10 Problem List - Problems (1) Morbid obesity Assessment/Plan: -Encouraged weight loss -RD consult Code(s): E66.01 - MORBID (SEVERE) OBESITY DUE TO EXCESS CALORIES (2) Acute respiratory failure with hypoxia and hypercarbia Assessment/Plan: -Seen by pulmonary -Nasal O2 -Bronchodilators -IV medrol -BIPAP PRN -Monteleukast 10 mg po HS Code(s): J96.01 - ACUTE RESPIRATORY FAILURE WITH HYPOXIA; J96.02 - ACUTE RESPIRATORY FAILURE WITH HYPERCAPNIA (3) COPD exacerbation Assessment/Plan: -Seen by pulmonary -Nasal O2 -Bronchodilators -IV medrol -BIPAP PRN -Monteleukast 10 mg po HS Code(s): J44.1 - CHRONIC OBSTRUCTIVE PULMONARY DISEASE W (ACUTE) EXACERBATION (4) Diabetes Assessment/Plan: A1c at 6.4% -BGM AC HS -Diabetic low calorie diet -RD consult -Novolog insulin sliding scale Code(s): E11.9 - TYPE 2 DIABETES MELLITUS WITHOUT COMPLICATIONS Qualifiers: Diabetes mellitus type: type 2 (5) Pneumonia Assessment/Plan: -ID consult -IV abx -Tylenol PRN Code(s): J18.9 - PNEUMONIA, UNSPECIFIED ORGANISM Qualifiers: Pneumonia type: due to unspecified organism Laterality: right Lung location: middle lobe of lung Qualified Code(s): J18.1 - Lobar pneumonia, unspecified organism (6) Sleep apnea Code(s): G47.30 - SLEEP APNEA, UNSPECIFIED Assessment/Plan see problem list
[2018-07-08] MEDS ORDERED: ACETAMINOPHEN 325 MG TABLET (FP) PO PRN (11:09)
[2018-07-08] MEDS: AZITHROMYCIN IVPB 250 MG in DEXTROSE 5%-WATER - 250 ML IVPB SCH (11:35)
--- NOTE | 2018-07-08 13:20 | PN ---
Progress Note (short form) - Note Progress Note: PULMONARY Breathing better but still with shortness of breath, cough and wheezing. No fevers or chills. Vital Signs Period Temp Pulse Resp BP Sys/Ang Pulse Ox Last 24 Hr 97.8 F-98.7 F 69-83 20-22 120-141/54-74 94-98 Gen: mildly tachypneic with speaking Heart: RRR Lung: bilateral rhonchi, wheezes Abd: soft, nontender Ext: no edema CBC, BMP 07/08/18 07:10 07/08/18 07:10 Active Medications Acetaminophen (Tylenol -) 650 mg PO Q4H PRN PRN Reason: PAIN OR FEVER Albuterol Sulfate (Ventolin 0.083% Nebulizer Soln -) 1 amp NEB RQID [facility] Last Admin: 07/08/18 11:55 Dose: 1 amp Aspirin (Asa -) 81 mg PO DAILY [facility] Last Admin: 07/08/18 09:04 Dose: 81 mg Benzocaine/Menthol (Cepacol Lozenge -) 1 each MM PRN PRN PRN Reason: SORE THROAT Docusate Sodium (Colace -) 100 mg PO DAILY [facility] Last Admin: 07/08/18 09:04 Dose: 100 mg Enoxaparin Sodium (Lovenox -) 40 mg SQ DAILY [facility] Last Admin: 07/08/18 09:05 Dose: 40 mg Guaifenesin (Robitussin -) 10 ml PO Q4H PRN PRN Reason: COUGH Last Admin: 07/07/18 22:33 Dose: 10 ml Ceftriaxone Sodium 1 gm/ (Dextrose) 50 mls @ 100 mls/hr IVPB DAILY [facility]; Protocol Last Admin: 07/08/18 09:03 Dose: 100 mls/hr Azithromycin 250 mg/ Dextrose 250 mls @ 250 mls/hr IVPB DAILY [facility] Last Admin: 07/08/18 11:35 Dose: 250 mls/hr Insulin Aspart (Novolog Vial Sliding Scale -) 1 vial SQ ACHS [facility]; Protocol Last Admin: 07/08/18 11:55 Dose: 2 units Methylprednisolone Sodium Succinate (Solu-Medrol -) 40 mg IVPUSH Q6H-IV [facility] Last Admin: 07/08/18 09:03 Dose: 40 mg Montelukast Sodium (Singulair -) 10 mg PO HS [facility] Last Admin: 07/07/18 22:31 Dose: 10 mg Pantoprazole Sodium (Protonix -) 40 mg PO DAILY [facility] Last Admin: 07/08/18 09:04 Dose: 40 mg A/P Acute Hypoxic and Hypercapneic Respiratory Failure Acute COPD Exacerbation Pneumonia LV Diastolic Dysfunction Morbid Obesity HTN DM Smoker - continue medrol - inhaled bronchodilators - O2 to keep SpO2 >90% - continue antibiotics - smoking cessation - DVT prophylaxis
[2018-07-08] MEDS ORDERED: ALBUTEROL SO4 0.083% IH SOL 2.5 MG/3 ML VIAL.NEB. NEB PRN (13:21)
[2018-07-08] MEDS: ALBUTEROL SO4 2.5/IPRATROPIUM 0.5 INH SOL 3 ML VIAL.NEB. NEB SCH ×2 (15:40→21:00)
--- NOTE | 2018-07-08 19:14 | PN ---
Progress Note (short form) - Note Progress Note: ID CONSULT DICTATED EXACERBATION COPD PNEUMONIA AWAIT C/S CONTINUE ZITHROMAX/ CEFTRIAXONE
[2018-07-08] MEDS: MONTELUKAST NA 10 MG TABLET PO SCH (21:10)
[2018-07-08] MEDS: BENZOCAINE/MENTH/CETYLPYRD CL 1 EACH LOZENGE MM PRN (23:12)
[2018-07-08] MEDS: guaiFENesin 200 MG/10 ML 10 ML UNIT-DOSE CUPS PO PRN (23:12)
[2018-07-09] MEDS: methylPREDNISolone NA SUCC 40 MG/1 ML VIAL IVPUSH SCH ×4 (03:12→21:53)
[2018-07-09] MEDS: INSULIN SLIDING SCALE (NOVOLOG) 1 VIAL SQ SCH ×4 (06:24→21:53)
[2018-07-09] MEDS: ALBUTEROL SO4 2.5/IPRATROPIUM 0.5 INH SOL 3 ML VIAL.NEB. NEB SCH ×4 (08:40→20:50)
--- NOTE | 2018-07-09 10:10 | PN ---
Progress Note, Physician Chief Complaint: COPD Exacerbation Pneumonia Diabetes mellitus History of Present Illness: SOB at rest and exertional Seen by pulmonary CT Chest + Pneumonia - Current Medication List Current Medications: Active Medications Acetaminophen (Tylenol -) 650 mg PO Q4H PRN PRN Reason: PAIN OR FEVER Albuterol Sulfate (Ventolin 0.083% Nebulizer Soln -) 1 amp NEB Q4H PRN PRN Reason: SHORT OF BREATH/WHEEZING Albuterol/Ipratropium (Duoneb -) 1 amp NEB RQID [facility] Last Admin: 07/09/18 08:40 Dose: 1 amp Aspirin (Asa -) 81 mg PO DAILY [facility] Last Admin: 07/08/18 09:04 Dose: 81 mg Benzocaine/Menthol (Cepacol Lozenge -) 1 each MM PRN PRN PRN Reason: SORE THROAT Last Admin: 07/08/18 23:12 Dose: 1 each Docusate Sodium (Colace -) 100 mg PO DAILY [facility] Last Admin: 07/08/18 09:04 Dose: 100 mg Enoxaparin Sodium (Lovenox -) 40 mg SQ DAILY [facility] Last Admin: 07/08/18 09:05 Dose: 40 mg Guaifenesin (Robitussin -) 10 ml PO Q4H PRN PRN Reason: COUGH Last Admin: 07/08/18 23:12 Dose: 10 ml Ceftriaxone Sodium 1 gm/ (Dextrose) 50 mls @ 100 mls/hr IVPB DAILY [facility]; Protocol Last Admin: 07/08/18 09:03 Dose: 100 mls/hr Azithromycin 250 mg/ Dextrose 250 mls @ 250 mls/hr IVPB DAILY [facility] Last Admin: 07/08/18 11:35 Dose: 250 mls/hr Insulin Aspart (Novolog Vial Sliding Scale -) 1 vial SQ ACHS [facility]; Protocol Last Admin: 07/09/18 06:24 Dose: Not Given Methylprednisolone Sodium Succinate (Solu-Medrol -) 40 mg IVPUSH Q6H-IV [facility] Last Admin: 07/09/18 03:12 Dose: 40 mg Montelukast Sodium (Singulair -) 10 mg PO HS [facility] Last Admin: 07/08/18 21:10 Dose: 10 mg Pantoprazole Sodium (Protonix -) 40 mg PO DAILY [facility] Last Admin: 07/08/18 09:04 Dose: 40 mg - Objective Vital Signs: Vital Signs Temperature 97.7 F 07/09/18 05:46 Pulse Rate 59 L 07/09/18 05:46 Respiratory Rate 20 07/09/18 05:46 Blood Pressure 138/78 07/09/18 05:46 O2 Sat by Pulse Oximetry (%) 92 L 07/09/18 06:08 Constitutional: Yes: Well Nourished, No Distress, Calm, Obese Cardiovascular: Yes: Regular Rate and Rhythm Respiratory: Yes: Regular, On Nasal O2, SOB, SOB on Exertion Gastrointestinal: Yes: Normal Bowel Sounds, Soft, Abdomen, Obese Genitourinary: Yes: WNL Musculoskeletal: Yes: Muscle Weakness Extremities: Yes: WNL Edema: No Peripheral Pulses WNL: Yes Neurological: Yes: Alert, Oriented Psychiatric: Yes: Alert, Oriented Labs: CBC, BMP 07/08/18 07:10 07/08/18 07:10 Problem List - Problems (1) Morbid obesity Assessment/Plan: -Encouraged weight loss -RD consult Code(s): E66.01 - MORBID (SEVERE) OBESITY DUE TO EXCESS CALORIES (2) Acute respiratory failure with hypoxia and hypercarbia Assessment/Plan: -Seen by pulmonary -Nasal O2 -Bronchodilators -IV medrol -BIPAP PRN -Monteleukast 10 mg po HS Code(s): J96.01 - ACUTE RESPIRATORY FAILURE WITH HYPOXIA; J96.02 - ACUTE RESPIRATORY FAILURE WITH HYPERCAPNIA (3) COPD exacerbation Assessment/Plan: -Seen by pulmonary -Nasal O2 -Bronchodilators -IV abx -IV medrol -BIPAP PRN -Monteleukast 10 mg po HS Code(s): J44.1 - CHRONIC OBSTRUCTIVE PULMONARY DISEASE W (ACUTE) EXACERBATION (4) Diabetes Assessment/Plan: A1c at 6.4% -BGM AC HS -Diabetic low calorie diet -RD consult -Novolog insulin sliding scale Code(s): E11.9 - TYPE 2 DIABETES MELLITUS WITHOUT COMPLICATIONS Qualifiers: Diabetes mellitus type: type 2 (5) Pneumonia Assessment/Plan: -ID consult -IV abx -Tylenol PRN -IV medrol tapering dose -Nasal O2 -bronchodilators Code(s): J18.9 - PNEUMONIA, UNSPECIFIED ORGANISM Qualifiers: Pneumonia type: due to unspecified organism Laterality: right Lung location: middle lobe of lung Qualified Code(s): J18.1 - Lobar pneumonia, unspecified organism (6) Sleep apnea Assessment/Plan: -BIPAP ordered -Pulmonary on board Code(s): G47.30 - SLEEP APNEA, UNSPECIFIED Assessment/Plan see problem list
[2018-07-09] MEDS ORDERED: DEXTROSE 5%-WATER - 50 ML IVPB ONE (10:51)
[2018-07-09] MEDS ORDERED: cefTRIAXone SODIUM 1 GM VIAL ONE (10:51)
[2018-07-09] MEDS: CEFTRIAXONE 1 GM in DEXTROSE 5%-WATER - 50 ML IVPB SCH (11:16)
[2018-07-09] MEDS: PANTOPRAZOLE 40 MG TABLET (FP) PO SCH (11:17)
[2018-07-09] MEDS: ENOXAPARIN NA (PORCINE) 40 MG/0.4 ML DISP.SYRIN SQ SCH (11:17)
[2018-07-09] MEDS: AZITHROMYCIN IVPB 250 MG in DEXTROSE 5%-WATER - 250 ML IVPB SCH (11:17)
[2018-07-09] MEDS: DOCUSATE SODIUM 100 MG CAPSULE (FP) PO SCH (11:17)
[2018-07-09] MEDS: ASPIRIN 81 MG CHEWABLE TABLETS PO SCH (11:17)
[2018-07-09] MEDS: BENZOCAINE/MENTH/CETYLPYRD CL 1 EACH LOZENGE MM PRN ×2 (11:27→21:54)
--- NOTE | 2018-07-09 12:03 | PN ---
Progress Note (short form) - Note Progress Note: PULMONARY Breathing better but still with shortness of breath, cough with clear sputum and wheezing. No fevers or chills. Vital Signs Period Temp Pulse Resp BP Sys/Ang Pulse Ox Last 24 Hr 97.7 F-98.4 F 59-77 20-20 130-160/67-91 92-99 Gen: mildly tachypneic with speaking Heart: RRR Lung: bilateral rhonchi, wheezes Abd: soft, nontender Ext: no edema Active Medications Acetaminophen (Tylenol -) 650 mg PO Q4H PRN PRN Reason: PAIN OR FEVER Albuterol Sulfate (Ventolin 0.083% Nebulizer Soln -) 1 amp NEB Q4H PRN PRN Reason: SHORT OF BREATH/WHEEZING Albuterol/Ipratropium (Duoneb -) 1 amp NEB RQID [facility] Last Admin: 07/09/18 11:30 Dose: 1 amp Aspirin (Asa -) 81 mg PO DAILY [facility] Last Admin: 07/09/18 11:17 Dose: 81 mg Atorvastatin Calcium (Lipitor -) 40 mg PO HS [facility] Baclofen (Lioresal -) 10 mg PO DAILY [facility] Benzocaine/Menthol (Cepacol Lozenge -) 1 each MM PRN PRN PRN Reason: SORE THROAT Last Admin: 07/09/18 11:27 Dose: 1 each Docusate Sodium (Colace -) 100 mg PO DAILY [facility] Last Admin: 07/09/18 11:17 Dose: 100 mg Enoxaparin Sodium (Lovenox -) 40 mg SQ DAILY [facility] Last Admin: 07/09/18 11:17 Dose: 40 mg Ergocalciferol (Drisdol -) 50,000 unit PO Q7D@1000 [facility] Furosemide (Lasix -) 40 mg PO DAILY [facility] Gabapentin (Neurontin -) 300 mg PO DAILY [facility] Guaifenesin (Robitussin -) 10 ml PO Q4H PRN PRN Reason: COUGH Last Admin: 07/08/18 23:12 Dose: 10 ml Ceftriaxone Sodium 1 gm/ (Dextrose) 50 mls @ 100 mls/hr IVPB DAILY [facility]; Protocol Last Admin: 07/09/18 11:16 Dose: 100 mls/hr Azithromycin 250 mg/ Dextrose 250 mls @ 250 mls/hr IVPB DAILY [facility] Last Admin: 07/09/18 11:17 Dose: 250 mls/hr Insulin Aspart (Novolog Vial Sliding Scale -) 1 vial SQ ACHS [facility]; Protocol Last Admin: 07/09/18 06:24 Dose: Not Given Lisinopril (Prinivil) 5 mg PO DAILY [facility] Metformin HCl (Glucophage Xr -) 500 mg PO DAILY@0700 [facility] Methylprednisolone Sodium Succinate (Solu-Medrol -) 40 mg IVPUSH Q6H-IV [facility] Last Admin: 07/09/18 11:16 Dose: 40 mg Montelukast Sodium (Singulair -) 10 mg PO HS [facility] Last Admin: 07/08/18 21:10 Dose: 10 mg Pantoprazole Sodium (Protonix -) 40 mg PO DAILY [facility] Last Admin: 07/09/18 11:17 Dose: 40 mg Roflumilast (Daliresp -) 500 mcg PO DAILY [facility] Solifenacin (Vesicare -) 5 mg PO DAILY [facility] A/P Acute Hypoxic and Hypercapneic Respiratory Failure Acute COPD Exacerbation Pneumonia LV Diastolic Dysfunction Morbid Obesity HTN DM Smoker - continue medrol at current dose - inhaled bronchodilators - O2 to keep SpO2 >90% - continue antibiotics - smoking cessation - DVT prophylaxis
[2018-07-09 12:17] LABS: BASO % 0.2 % (0-2.0); HEMATOCRIT 44.8 % (32.4-45.2); HEMOGLOBIN 14.1 GM/dL (10.7-15.3); LYMPH % 8.9 % (8-40); MCH 27.3 pg (25.7-33.7); MCHC 31.6 g/dl (32.0-36.0); MEAN CELL VOLUME 86.5 fl (80-96); MEAN PLT VOLUME 9.5 fl (7.5-11.1); MONO % 4.8 % (3.8-10.2); NEUT % 86.1 % (42.8-82.8); PLATELET COUNT 204 K/MM3 (134-434); RBC 5.18 M/mm3 (3.60-5.2); RDW 15.7 % (11.6-15.6); WHITE BLOOD COUNT 11.9 K/mm3 (4.0-10.0)
[2018-07-09 12:32] LABS: ALBUMIN 3.4 g/dl (3.4-5.0); BILIRUBIN,TOTAL 0.2 mg/dL (0.2-1); CALCIUM 9.5 mg/dL (8.5-10.1); CREATININE 0.8 mg/dL (0.55-1.3); POTASSIUM 4.7 mmol/L (3.5-5.1); TOT PROT 7.8 g/dl (6.4-8.2)
[2018-07-09] MEDS: BACLOFEN 10 MG TABLET (FP) PO SCH (13:46)
[2018-07-09] MEDS: SOLIFENACIN SUCCINATE 5 MG TAB (FP) PO SCH (13:46)
[2018-07-09] MEDS: GABAPENTIN 300 MG CAPSULE (FP) PO SCH (13:46)
[2018-07-09] MEDS: LISINOPRIL 5 MG TABLET (FP) PO SCH (13:46)
[2018-07-09] MEDS: FUROSEMIDE 40 MG TABLET (FP) PO SCH (13:47)
[2018-07-09] MEDS: ROFLUMILAST 500 MCG TABLET PO SCH (14:45)
--- NOTE | 2018-07-09 19:38 | CONS ---
DATE OF CONSULTATION: DATE OF DICTATION: 07/09/2018 The patient is a 68-year-old female who is evaluated for possible pneumonia. She was admitted to the hospital on July 06, 2018, with a 2-day history of worsening shortness of breath and cough productive of whitish sputum. She had apparently had a temperature of 103 at home. She was brought to the emergency room, where she was evaluated. A CAT scan of the chest was performed and showed patchy infiltrates involving the right upper lobe and right middle lobe. She was noted to be hypercapnic, hypoxemic, and started on supplemental oxygen. Cultures were obtained. She was empirically treated with Zithromax. Past medical history positive for morbid obesity, hypertension, diabetes mellitus, asthma, COPD, coronary artery disease, myocardial infarction. No known drug allergies. MEDICATIONS: Solu-Medrol, Tylenol, lisinopril, Zithromax, ceftriaxone, Lovenox, Neurontin. SOCIAL HISTORY: Patient lives at home in the community. Former smoker. SYSTEMS REVIEW: Neurologic: No loss of consciousness, seizure activity, or focal weakness. Cardiac: Negative chest pain or palpitations. Respiratory: As per HPI. Gastrointestinal: Negative vomiting or diarrhea. Genitourinary: Negative for urinary tract infection. LABORATORY DATA: White count 11.9, white blood cell count 10.7, hematocrit 46.6, platelet count 177, BUN 25, creatinine 1.0, liver enzymes normal. Cultures pending. PHYSICAL EXAMINATION: General: Patient is awake and alert, morbidly obese, in no acute respiratory distress. Vital Signs: Temperature 97.9. Blood pressure 139/91. Pulse 76, regular. Respirations 18 per minute. Eyes: Sclerae anicteric. Heart Sounds: S1, S2. Lungs: Clear, with decreased breath sounds at the bases. Abdomen: Soft, nontender. Extremities: Negative for edema. IMPRESSION: 1. Acute exacerbation of chronic obstructive pulmonary disease. 2. Upper respiratory tract infection. Rule out pneumonia. 3. Morbid obesity. Await cultures. Continue empiric antibiotic coverage with Zithromax and ceftriaxone. Inhaled bronchodilators, corticosteroids. Will follow. Thank you for the kind referral. PACHECO BRUNER M.D. [id number]
[2018-07-09] MEDS: ATORVASTATIN CA 40 MG TABLET (FP) PO SCH (21:53)
[2018-07-09] MEDS: MONTELUKAST NA 10 MG TABLET PO SCH (21:53)
[2018-07-09] MEDS: guaiFENesin 200 MG/10 ML 10 ML UNIT-DOSE CUPS PO PRN (21:54)
--- NOTE | 2018-07-09 23:04 | PN ---
Progress Note, Physician History of Present Illness: AWAKE, ALERT SEATED IN BED BREATHING NON LABORED AFEBRILE - Current Medication List Current Medications: Active Medications Acetaminophen (Tylenol -) 650 mg PO Q4H PRN PRN Reason: PAIN OR FEVER Albuterol Sulfate (Ventolin 0.083% Nebulizer Soln -) 1 amp NEB Q4H PRN PRN Reason: SHORT OF BREATH/WHEEZING Albuterol/Ipratropium (Duoneb -) 1 amp NEB RQID [facility] Last Admin: 07/09/18 20:50 Dose: 1 amp Aspirin (Asa -) 81 mg PO DAILY [facility] Last Admin: 07/09/18 11:17 Dose: 81 mg Atorvastatin Calcium (Lipitor -) 40 mg PO HS [facility] Last Admin: 07/09/18 21:53 Dose: 40 mg Baclofen (Lioresal -) 10 mg PO DAILY [facility] Last Admin: 07/09/18 13:46 Dose: 10 mg Benzocaine/Menthol (Cepacol Lozenge -) 1 each MM PRN PRN PRN Reason: SORE THROAT Last Admin: 07/09/18 21:54 Dose: 1 each Docusate Sodium (Colace -) 100 mg PO DAILY [facility] Last Admin: 07/09/18 11:17 Dose: 100 mg Enoxaparin Sodium (Lovenox -) 40 mg SQ DAILY [facility] Last Admin: 07/09/18 11:17 Dose: 40 mg Ergocalciferol (Drisdol -) 50,000 unit PO Q7D@1000 [facility] Furosemide (Lasix -) 40 mg PO DAILY [facility] Last Admin: 07/09/18 13:47 Dose: 40 mg Gabapentin (Neurontin -) 300 mg PO DAILY [facility] Last Admin: 07/09/18 13:46 Dose: 300 mg Guaifenesin (Robitussin -) 10 ml PO Q4H PRN PRN Reason: COUGH Last Admin: 07/09/18 21:54 Dose: 10 ml Ceftriaxone Sodium 1 gm/ (Dextrose) 50 mls @ 100 mls/hr IVPB DAILY [facility]; Protocol Last Admin: 07/09/18 11:16 Dose: 100 mls/hr Azithromycin 250 mg/ Dextrose 250 mls @ 250 mls/hr IVPB DAILY [facility] Last Admin: 07/09/18 11:17 Dose: 250 mls/hr Insulin Aspart (Novolog Vial Sliding Scale -) 1 vial SQ ACHS [facility]; Protocol Last Admin: 07/09/18 21:53 Dose: 2 units Lisinopril (Prinivil) 5 mg PO DAILY [facility] Last Admin: 07/09/18 13:46 Dose: 5 mg Metformin HCl (Glucophage Xr -) 500 mg PO DAILY@0700 [facility] Last Admin: 07/09/18 13:47 Dose: Not Given Methylprednisolone Sodium Succinate (Solu-Medrol -) 40 mg IVPUSH Q6H-IV [facility] Last Admin: 07/09/18 21:53 Dose: 40 mg Montelukast Sodium (Singulair -) 10 mg PO HS [facility] Last Admin: 07/09/18 21:53 Dose: 10 mg Pantoprazole Sodium (Protonix -) 40 mg PO DAILY [facility] Last Admin: 07/09/18 11:17 Dose: 40 mg Roflumilast (Daliresp -) 500 mcg PO DAILY [facility] Last Admin: 07/09/18 14:45 Dose: 500 mcg Solifenacin (Vesicare -) 5 mg PO DAILY [facility] Last Admin: 07/09/18 13:46 Dose: 5 mg - Objective Vital Signs: Vital Signs Temperature 98.5 F 07/09/18 18:00 Pulse Rate 74 07/09/18 18:00 Respiratory Rate 20 07/09/18 18:00 Blood Pressure 133/58 L 07/09/18 18:00 O2 Sat by Pulse Oximetry (%) 98 07/09/18 09:00 Constitutional: Yes: No Distress, Obese Eyes: Yes: Conjunctiva Clear Cardiovascular: Yes: Regular Rate and Rhythm, S1, S2 Respiratory: Yes: Diminished Gastrointestinal: Yes: Normal Bowel Sounds, Soft Labs: CBC, BMP 07/09/18 11:38 07/09/18 11:38 Assessment/Plan ACUTE EXACERBATION COPD PNEUMONIA MORBID OBESITY CONTINUE ZITHROMAX/ CEFTRIAXONE
[2018-07-10] MEDS: methylPREDNISolone NA SUCC 40 MG/1 ML VIAL IVPUSH SCH ×4 (03:37→23:08)
[2018-07-10] MEDS: INSULIN SLIDING SCALE (NOVOLOG) 1 VIAL SQ SCH ×4 (06:20→23:08)
[2018-07-10 07:06] LABS: BASO % 0.3 % (0-2.0); HEMATOCRIT 44.6 % (32.4-45.2); HEMOGLOBIN 13.9 GM/dL (10.7-15.3); LYMPH % 6.7 % (8-40); MCH 27.2 pg (25.7-33.7); MCHC 31.2 g/dl (32.0-36.0); MEAN PLT VOLUME 9.2 fl (7.5-11.1); MONO % 3.9 % (3.8-10.2); NEUT % 89.1 % (42.8-82.8); PLATELET COUNT 243 K/MM3 (134-434); RBC 5.13 M/mm3 (3.60-5.2); RDW 15.7 % (11.6-15.6); WHITE BLOOD COUNT 12.7 K/mm3 (4.0-10.0)
[2018-07-10 07:26] LABS: ALBUMIN 3.3 g/dl (3.4-5.0); BILIRUBIN,TOTAL 0.3 mg/dL (0.2-1); CALCIUM 9.6 mg/dL (8.5-10.1); CREATININE 0.9 mg/dL (0.55-1.3); POTASSIUM 4.8 mmol/L (3.5-5.1); TOT PROT 7.6 g/dl (6.4-8.2)
[2018-07-10] MEDS: ALBUTEROL SO4 2.5/IPRATROPIUM 0.5 INH SOL 3 ML VIAL.NEB. NEB SCH ×4 (07:42→20:50)
[2018-07-10] MEDS ORDERED: DEXTROSE 5%-WATER - 50 ML IVPB ONE (09:13)
[2018-07-10] MEDS ORDERED: cefTRIAXone SODIUM 1 GM VIAL ONE (09:13)
[2018-07-10] MEDS ORDERED: PT OWN MED DRAWER 7, Y5N ONE (09:13)
[2018-07-10] MEDS: ENOXAPARIN NA (PORCINE) 40 MG/0.4 ML DISP.SYRIN SQ SCH (09:31)
[2018-07-10] MEDS: CEFTRIAXONE 1 GM in DEXTROSE 5%-WATER - 50 ML IVPB SCH (09:31)
[2018-07-10] MEDS: AZITHROMYCIN IVPB 250 MG in DEXTROSE 5%-WATER - 250 ML IVPB SCH (09:31)
[2018-07-10] MEDS: GABAPENTIN 300 MG CAPSULE (FP) PO SCH (09:32)
[2018-07-10] MEDS: PANTOPRAZOLE 40 MG TABLET (FP) PO SCH (09:32)
[2018-07-10] MEDS: DOCUSATE SODIUM 100 MG CAPSULE (FP) PO SCH (09:32)
[2018-07-10] MEDS: BACLOFEN 10 MG TABLET (FP) PO SCH (09:32)
[2018-07-10] MEDS: SOLIFENACIN SUCCINATE 5 MG TAB (FP) PO SCH (09:32)
[2018-07-10] MEDS: ASPIRIN 81 MG CHEWABLE TABLETS PO SCH (09:32)
[2018-07-10] MEDS: FUROSEMIDE 40 MG TABLET (FP) PO SCH (09:32)
[2018-07-10] MEDS: LISINOPRIL 5 MG TABLET (FP) PO SCH (09:32)
[2018-07-10] MEDS: ROFLUMILAST 500 MCG TABLET PO SCH (09:33)
[2018-07-10] MEDS ORDERED: ERGOCALCIFEROL (VITAMIN D2) 50,000 UNIT CAPSULE (FP) PO SCH (10:00)
--- NOTE | 2018-07-10 12:59 | PN ---
Progress Note, Physician Chief Complaint: patient seen and examined ambulating hallway with oxygen says her breathing is much better - Current Medication List Current Medications: Active Medications Acetaminophen (Tylenol -) 650 mg PO Q4H PRN PRN Reason: PAIN OR FEVER Albuterol Sulfate (Ventolin 0.083% Nebulizer Soln -) 1 amp NEB Q4H PRN PRN Reason: SHORT OF BREATH/WHEEZING Albuterol/Ipratropium (Duoneb -) 1 amp NEB RQID [facility] Last Admin: 07/10/18 11:27 Dose: 1 amp Aspirin (Asa -) 81 mg PO DAILY [facility] Last Admin: 07/10/18 09:32 Dose: 81 mg Atorvastatin Calcium (Lipitor -) 40 mg PO HS [facility] Last Admin: 07/09/18 21:53 Dose: 40 mg Baclofen (Lioresal -) 10 mg PO DAILY [facility] Last Admin: 07/10/18 09:32 Dose: 10 mg Benzocaine/Menthol (Cepacol Lozenge -) 1 each MM PRN PRN PRN Reason: SORE THROAT Last Admin: 07/09/18 21:54 Dose: 1 each Docusate Sodium (Colace -) 100 mg PO DAILY [facility] Last Admin: 07/10/18 09:32 Dose: 100 mg Enoxaparin Sodium (Lovenox -) 40 mg SQ DAILY [facility] Last Admin: 07/10/18 09:31 Dose: 40 mg Ergocalciferol (Drisdol -) 50,000 unit PO Q7D@1000 [facility] Last Admin: 07/10/18 09:33 Dose: 50,000 unit Furosemide (Lasix -) 40 mg PO DAILY [facility] Last Admin: 07/10/18 09:32 Dose: 40 mg Gabapentin (Neurontin -) 300 mg PO DAILY [facility] Last Admin: 07/10/18 09:32 Dose: 300 mg Guaifenesin (Robitussin -) 10 ml PO Q4H PRN PRN Reason: COUGH Last Admin: 07/09/18 21:54 Dose: 10 ml Ceftriaxone Sodium 1 gm/ (Dextrose) 50 mls @ 100 mls/hr IVPB DAILY [facility]; Protocol Last Admin: 07/10/18 09:31 Dose: 100 mls/hr Azithromycin 250 mg/ Dextrose 250 mls @ 250 mls/hr IVPB DAILY [facility] Last Admin: 07/10/18 09:31 Dose: 250 mls/hr Insulin Aspart (Novolog Vial Sliding Scale -) 1 vial SQ ACHS [facility]; Protocol Last Admin: 07/10/18 12:20 Dose: Not Given Lisinopril (Prinivil) 5 mg PO DAILY [facility] Last Admin: 07/10/18 09:32 Dose: 5 mg Metformin HCl (Glucophage Xr -) 500 mg PO DAILY@0700 [facility] Last Admin: 07/10/18 06:20 Dose: 500 mg Methylprednisolone Sodium Succinate (Solu-Medrol -) 40 mg IVPUSH Q6H-IV [facility] Last Admin: 07/10/18 09:31 Dose: 40 mg Montelukast Sodium (Singulair -) 10 mg PO HS [facility] Last Admin: 07/09/18 21:53 Dose: 10 mg Pantoprazole Sodium (Protonix -) 40 mg PO DAILY [facility] Last Admin: 07/10/18 09:32 Dose: 40 mg Roflumilast (Daliresp -) 500 mcg PO DAILY [facility] Last Admin: 07/10/18 09:33 Dose: 500 mcg Solifenacin (Vesicare -) 5 mg PO DAILY [facility] Last Admin: 07/10/18 09:32 Dose: 5 mg - Objective Vital Signs: Vital Signs Temperature 98.5 F 07/10/18 10:00 Pulse Rate 68 07/10/18 10:00 Respiratory Rate 18 07/10/18 10:00 Blood Pressure 114/52 L 07/10/18 10:00 O2 Sat by Pulse Oximetry (%) 95 07/10/18 07:41 Constitutional: Yes: Calm Cardiovascular: Yes: Regular Rate and Rhythm, S1, S2 Respiratory: Yes: On Nasal O2, Rhonchi Gastrointestinal: Yes: Normal Bowel Sounds, Soft Edema: No Neurological: Yes: Alert, Oriented Labs: CBC, BMP 07/10/18 05:30 07/10/18 05:30 Problem List - Problems (1) COPD exacerbation Assessment/Plan: oxygen keep saturation > 90% singulair iv medrol q6hr iv abx for pna nebulizer pulm consult and ID consult appreciated ct chest noted for infiltrates Code(s): J44.1 - CHRONIC OBSTRUCTIVE PULMONARY DISEASE W (ACUTE) EXACERBATION (2) Pneumonia Assessment/Plan: chest ct noted iv abx zithromax and Rocephin ID and pulm eval noted Code(s): J18.9 - PNEUMONIA, UNSPECIFIED ORGANISM Qualifiers: Pneumonia type: due to unspecified organism Laterality: right Lung location: middle lobe of lung Qualified Code(s): J18.1 - Lobar pneumonia, unspecified organism (3) Diabetes Assessment/Plan: bgm- slding scale hgba1c 6.4 diabetic diet Code(s): E11.9 - TYPE 2 DIABETES MELLITUS WITHOUT COMPLICATIONS Qualifiers: Diabetes mellitus type: type 2 (4) Leukocytosis Assessment/Plan: secondary to steroids Microbiology 07/09/18 14:39 Urine - Urine Clean Catch Legionella Antigen - Final 07/09/18 14:39 Urine - Urine Clean Catch Streptococcus pneumoniae Antigen ( M - Final 07/06/18 19:18 Blood - Peripheral Venous Blood Culture - Preliminary NO GROWTH OBTAINED AFTER 72 HOURS, INCUBATION TO CONTINUE FOR 2 DAYS. 07/06/18 19:18 Blood - Peripheral Venous Blood Culture - Preliminary NO GROWTH OBTAINED AFTER 72 HOURS, INCUBATION TO CONTINUE FOR 2 DAYS. no fever iv abx for pna Code(s): D72.829 - ELEVATED WHITE BLOOD CELL COUNT, UNSPECIFIED
--- NOTE | 2018-07-10 13:47 | PN ---
Progress Note (short form) - Note Progress Note: Breathing better but still with shortness of breath. Some cough with clear sputum and wheezing. No fevers or chills. Intake & Output 07/07/18 07/08/18 07/09/18 07/10/18 23:59 23:59 23:59 23:59 Intake Total 101 861 2516 10 Balance 176 275 9220 10 Weight 330 lb 330 lb Last Vital Signs Temp Pulse Resp BP Pulse Ox 98.5 F 68 18 114/52 L 94 L 07/10/18 10:00 07/10/18 10:00 07/10/18 10:00 07/10/18 10:00 07/10/18 09:00 Active Medications Acetaminophen (Tylenol -) 650 mg PO Q4H PRN PRN Reason: PAIN OR FEVER Albuterol Sulfate (Ventolin 0.083% Nebulizer Soln -) 1 amp NEB Q4H PRN PRN Reason: SHORT OF BREATH/WHEEZING Albuterol/Ipratropium (Duoneb -) 1 amp NEB RQID [facility] Last Admin: 07/10/18 11:27 Dose: 1 amp Aspirin (Asa -) 81 mg PO DAILY [facility] Last Admin: 07/10/18 09:32 Dose: 81 mg Atorvastatin Calcium (Lipitor -) 40 mg PO HS [facility] Last Admin: 07/09/18 21:53 Dose: 40 mg Baclofen (Lioresal -) 10 mg PO DAILY [facility] Last Admin: 07/10/18 09:32 Dose: 10 mg Benzocaine/Menthol (Cepacol Lozenge -) 1 each MM PRN PRN PRN Reason: SORE THROAT Last Admin: 07/09/18 21:54 Dose: 1 each Docusate Sodium (Colace -) 100 mg PO DAILY [facility] Last Admin: 07/10/18 09:32 Dose: 100 mg Enoxaparin Sodium (Lovenox -) 40 mg SQ DAILY [facility] Last Admin: 07/10/18 09:31 Dose: 40 mg Ergocalciferol (Drisdol -) 50,000 unit PO Q7D@1000 [facility] Last Admin: 07/10/18 09:33 Dose: 50,000 unit Furosemide (Lasix -) 40 mg PO DAILY [facility] Last Admin: 07/10/18 09:32 Dose: 40 mg Gabapentin (Neurontin -) 300 mg PO DAILY [facility] Last Admin: 07/10/18 09:32 Dose: 300 mg Guaifenesin (Robitussin -) 10 ml PO Q4H PRN PRN Reason: COUGH Last Admin: 07/09/18 21:54 Dose: 10 ml Ceftriaxone Sodium 1 gm/ (Dextrose) 50 mls @ 100 mls/hr IVPB DAILY [facility]; Protocol Last Admin: 07/10/18 09:31 Dose: 100 mls/hr Azithromycin 250 mg/ Dextrose 250 mls @ 250 mls/hr IVPB DAILY [facility] Last Admin: 07/10/18 09:31 Dose: 250 mls/hr Insulin Aspart (Novolog Vial Sliding Scale -) 1 vial SQ ACHS [facility]; Protocol Last Admin: 07/10/18 12:20 Dose: Not Given Lisinopril (Prinivil) 5 mg PO DAILY [facility] Last Admin: 07/10/18 09:32 Dose: 5 mg Metformin HCl (Glucophage Xr -) 500 mg PO DAILY@0700 [facility] Last Admin: 07/10/18 06:20 Dose: 500 mg Methylprednisolone Sodium Succinate (Solu-Medrol -) 40 mg IVPUSH Q6H-IV [facility] Last Admin: 07/10/18 09:31 Dose: 40 mg Montelukast Sodium (Singulair -) 10 mg PO HS [facility] Last Admin: 07/09/18 21:53 Dose: 10 mg Pantoprazole Sodium (Protonix -) 40 mg PO DAILY [facility] Last Admin: 07/10/18 09:32 Dose: 40 mg Roflumilast (Daliresp -) 500 mcg PO DAILY [facility] Last Admin: 07/10/18 09:33 Dose: 500 mcg Solifenacin (Vesicare -) 5 mg PO DAILY [facility] Last Admin: 07/10/18 09:32 Dose: 5 mg Gen: mildly tachypneic with speaking Heart: RRR Lung: bilateral rhonchi, wheezes Abd: soft, nontender Ext: no edema Laboratory Results - last 24 hr 07/09/18 07/09/18 07/10/18 17:05 21:51 05:30 WBC 12.7 H RBC 5.13 Hgb 13.9 Hct 44.6 MCV 87.0 MCH 27.2 MCHC 31.2 L RDW 15.7 H Plt Count 243 MPV 9.2 Absolute Neuts (auto) 11.4 H Neutrophils % 89.1 H Lymphocytes % 6.7 L D Monocytes % 3.9 Eosinophils % 0.0 Basophils % 0.3 Nucleated RBC % 0 Sodium Potassium Chloride Carbon Dioxide Anion Gap BUN Creatinine Est GFR (CKD-EPI)AfAm Est GFR (CKD-EPI)NonAf POC Glucometer 196 207 Random Glucose Calcium Total Bilirubin AST ALT Alkaline Phosphatase Total Protein Albumin 07/10/18 07/10/18 07/10/18 05:30 06:18 12:19 WBC RBC Hgb Hct MCV MCH MCHC RDW Plt Count MPV Absolute Neuts (auto) Neutrophils % Lymphocytes % Monocytes % Eosinophils % Basophils % Nucleated RBC % Sodium 137 Potassium 4.8 Chloride 98 Carbon Dioxide 35 H Anion Gap 5 L BUN 28 H Creatinine 0.9 Est GFR (CKD-EPI)AfAm 76.68 Est GFR (CKD-EPI)NonAf 66.16 POC Glucometer 175 182 Random Glucose 165 H Calcium 9.6 Total Bilirubin 0.3 AST 15 ALT 22 Alkaline Phosphatase 75 Total Protein 7.6 Albumin 3.3 L A/P Acute Hypoxic and Hypercapneic Respiratory Failure Acute COPD Exacerbation Pneumonia LV Diastolic Dysfunction Morbid Obesity HTN DM Smoker - continue medrol at current dose - inhaled bronchodilators - O2 to keep SpO2 >90% - continue antibiotics - smoking cessation - DVT prophylaxis - Pre and post O2 saturation Dr De La Cruz
[2018-07-10] MEDS: MONTELUKAST NA 10 MG TABLET PO SCH (23:08)
[2018-07-10] MEDS: ATORVASTATIN CA 40 MG TABLET (FP) PO SCH (23:08)
--- NOTE | 2018-07-11 00:02 | PN ---
Progress Note, Physician Chief Complaint: SEATED IN BED + COUGH NOTED BREATHING NON-LABORED AFEBRILE, WBC SL ELEVATED ON STEROIDS - Current Medication List Current Medications: Active Medications Acetaminophen (Tylenol -) 650 mg PO Q4H PRN PRN Reason: PAIN OR FEVER Albuterol Sulfate (Ventolin 0.083% Nebulizer Soln -) 1 amp NEB Q4H PRN PRN Reason: SHORT OF BREATH/WHEEZING Albuterol/Ipratropium (Duoneb -) 1 amp NEB RQID [facility] Last Admin: 07/10/18 20:50 Dose: 1 amp Aspirin (Asa -) 81 mg PO DAILY [facility] Last Admin: 07/10/18 09:32 Dose: 81 mg Atorvastatin Calcium (Lipitor -) 40 mg PO HS [facility] Last Admin: 07/10/18 23:08 Dose: 40 mg Baclofen (Lioresal -) 10 mg PO DAILY [facility] Last Admin: 07/10/18 09:32 Dose: 10 mg Benzocaine/Menthol (Cepacol Lozenge -) 1 each MM PRN PRN PRN Reason: SORE THROAT Last Admin: 07/09/18 21:54 Dose: 1 each Docusate Sodium (Colace -) 100 mg PO DAILY [facility] Last Admin: 07/10/18 09:32 Dose: 100 mg Enoxaparin Sodium (Lovenox -) 40 mg SQ DAILY [facility] Last Admin: 07/10/18 09:31 Dose: 40 mg Ergocalciferol (Drisdol -) 50,000 unit PO Q7D@1000 [facility] Last Admin: 07/10/18 09:33 Dose: 50,000 unit Furosemide (Lasix -) 40 mg PO DAILY [facility] Last Admin: 07/10/18 09:32 Dose: 40 mg Gabapentin (Neurontin -) 300 mg PO DAILY [facility] Last Admin: 07/10/18 09:32 Dose: 300 mg Guaifenesin (Robitussin -) 10 ml PO Q4H PRN PRN Reason: COUGH Last Admin: 07/09/18 21:54 Dose: 10 ml Ceftriaxone Sodium 1 gm/ (Dextrose) 50 mls @ 100 mls/hr IVPB DAILY [facility]; Protocol Last Admin: 07/10/18 09:31 Dose: 100 mls/hr Azithromycin 250 mg/ Dextrose 250 mls @ 250 mls/hr IVPB DAILY [facility] Last Admin: 07/10/18 09:31 Dose: 250 mls/hr Insulin Aspart (Novolog Vial Sliding Scale -) 1 vial SQ ACHS [facility]; Protocol Last Admin: 07/10/18 23:08 Dose: 2 units Lisinopril (Prinivil) 5 mg PO DAILY [facility] Last Admin: 07/10/18 09:32 Dose: 5 mg Metformin HCl (Glucophage Xr -) 500 mg PO DAILY@0700 [facility] Last Admin: 07/10/18 06:20 Dose: 500 mg Methylprednisolone Sodium Succinate (Solu-Medrol -) 40 mg IVPUSH Q6H-IV [facility] Last Admin: 07/10/18 23:08 Dose: 40 mg Montelukast Sodium (Singulair -) 10 mg PO HS [facility] Last Admin: 07/10/18 23:08 Dose: 10 mg Pantoprazole Sodium (Protonix -) 40 mg PO DAILY [facility] Last Admin: 07/10/18 09:32 Dose: 40 mg Roflumilast (Daliresp -) 500 mcg PO DAILY [facility] Last Admin: 07/10/18 09:33 Dose: 500 mcg Solifenacin (Vesicare -) 5 mg PO DAILY [facility] Last Admin: 07/10/18 09:32 Dose: 5 mg - Objective Vital Signs: Vital Signs Temperature 98.4 F 07/10/18 20:00 Pulse Rate 74 07/10/18 20:00 Respiratory Rate 20 07/10/18 20:00 Blood Pressure 151/81 07/10/18 20:00 O2 Sat by Pulse Oximetry (%) 94 L 07/10/18 09:00 Constitutional: Yes: No Distress, Obese Cardiovascular: Yes: Regular Rate and Rhythm, S1, S2 Respiratory: Yes: Rhonchi Gastrointestinal: Yes: Soft, Abdomen, Obese Labs: CBC, BMP 07/10/18 05:30 07/10/18 05:30 Assessment/Plan ACUTE EXACERBATION COPD PNEUMONIA MORBID OBESITY CONTINUE ZITHROMAX/ CEFTRIAXONE
[2018-07-11] MEDS: methylPREDNISolone NA SUCC 40 MG/1 ML VIAL IVPUSH SCH ×2 (03:25→09:34)
[2018-07-11] MEDS: guaiFENesin 200 MG/10 ML 10 ML UNIT-DOSE CUPS PO PRN (05:16)
[2018-07-11] MEDS: INSULIN SLIDING SCALE (NOVOLOG) 1 VIAL SQ SCH ×4 (06:25→21:59)
--- NOTE | 2018-07-11 06:55 | PN ---
Progress Note, Physician History of Present Illness: AWAKE, ALERT SEATED IN BED BREATHING NON LABORED + COUGH AFEBRILE, WBC SL ELEVATED ON STEROIDS - Current Medication List Current Medications: Active Medications Acetaminophen (Tylenol -) 650 mg PO Q4H PRN PRN Reason: PAIN OR FEVER Albuterol Sulfate (Ventolin 0.083% Nebulizer Soln -) 1 amp NEB Q4H PRN PRN Reason: SHORT OF BREATH/WHEEZING Albuterol/Ipratropium (Duoneb -) 1 amp NEB RQID [facility] Last Admin: 07/10/18 20:50 Dose: 1 amp Aspirin (Asa -) 81 mg PO DAILY [facility] Last Admin: 07/10/18 09:32 Dose: 81 mg Atorvastatin Calcium (Lipitor -) 40 mg PO HS [facility] Last Admin: 07/10/18 23:08 Dose: 40 mg Baclofen (Lioresal -) 10 mg PO DAILY [facility] Last Admin: 07/10/18 09:32 Dose: 10 mg Benzocaine/Menthol (Cepacol Lozenge -) 1 each MM PRN PRN PRN Reason: SORE THROAT Last Admin: 07/09/18 21:54 Dose: 1 each Docusate Sodium (Colace -) 100 mg PO DAILY [facility] Last Admin: 07/10/18 09:32 Dose: 100 mg Enoxaparin Sodium (Lovenox -) 40 mg SQ DAILY [facility] Last Admin: 07/10/18 09:31 Dose: 40 mg Ergocalciferol (Drisdol -) 50,000 unit PO Q7D@1000 [facility] Last Admin: 07/10/18 09:33 Dose: 50,000 unit Furosemide (Lasix -) 40 mg PO DAILY [facility] Last Admin: 07/10/18 09:32 Dose: 40 mg Gabapentin (Neurontin -) 300 mg PO DAILY [facility] Last Admin: 07/10/18 09:32 Dose: 300 mg Guaifenesin (Robitussin -) 10 ml PO Q4H PRN PRN Reason: COUGH Last Admin: 07/11/18 05:16 Dose: 10 ml Ceftriaxone Sodium 1 gm/ (Dextrose) 50 mls @ 100 mls/hr IVPB DAILY [facility]; Protocol Last Admin: 07/10/18 09:31 Dose: 100 mls/hr Azithromycin 250 mg/ Dextrose 250 mls @ 250 mls/hr IVPB DAILY [facility] Last Admin: 07/10/18 09:31 Dose: 250 mls/hr Insulin Aspart (Novolog Vial Sliding Scale -) 1 vial SQ ACHS [facility]; Protocol Last Admin: 07/11/18 06:25 Dose: Not Given Lisinopril (Prinivil) 5 mg PO DAILY [facility] Last Admin: 07/10/18 09:32 Dose: 5 mg Metformin HCl (Glucophage Xr -) 500 mg PO DAILY@0700 [facility] Last Admin: 07/11/18 06:25 Dose: 500 mg Methylprednisolone Sodium Succinate (Solu-Medrol -) 40 mg IVPUSH Q6H-IV [facility] Last Admin: 07/11/18 03:25 Dose: 40 mg Montelukast Sodium (Singulair -) 10 mg PO HS [facility] Last Admin: 07/10/18 23:08 Dose: 10 mg Pantoprazole Sodium (Protonix -) 40 mg PO DAILY [facility] Last Admin: 07/10/18 09:32 Dose: 40 mg Roflumilast (Daliresp -) 500 mcg PO DAILY [facility] Last Admin: 07/10/18 09:33 Dose: 500 mcg Solifenacin (Vesicare -) 5 mg PO DAILY [facility] Last Admin: 07/10/18 09:32 Dose: 5 mg - Objective Vital Signs: Vital Signs Temperature 98.3 F 07/11/18 02:00 Pulse Rate 61 07/11/18 02:00 Respiratory Rate 20 07/11/18 02:00 Blood Pressure 127/76 07/11/18 02:00 O2 Sat by Pulse Oximetry (%) 93 L 07/11/18 03:00 Constitutional: Yes: No Distress, Obese Labs: CBC, BMP 07/10/18 05:30 07/10/18 05:30
[2018-07-11 07:15] LABS: BASO % 0.2 % (0-2.0); EOS % 0.1 % (0-4.5); HEMOGLOBIN 14.4 GM/dL (10.7-15.3); LYMPH % 5.9 % (8-40); MCH 27.4 pg (25.7-33.7); MCHC 31.9 g/dl (32.0-36.0); MEAN CELL VOLUME 85.9 fl (80-96); MONO % 5.3 % (3.8-10.2); NEUT % 88.5 % (42.8-82.8); PLATELET COUNT 242 K/MM3 (134-434); RBC 5.24 M/mm3 (3.60-5.2); RDW 15.6 % (11.6-15.6); WHITE BLOOD COUNT 11.5 K/mm3 (4.0-10.0)
[2018-07-11] MEDS: ALBUTEROL SO4 2.5/IPRATROPIUM 0.5 INH SOL 3 ML VIAL.NEB. NEB SCH ×4 (07:35→20:05)
[2018-07-11 07:45] LABS: ALBUMIN 3.2 g/dl (3.4-5.0); BILIRUBIN,TOTAL 0.4 mg/dL (0.2-1); CALCIUM 9.7 mg/dL (8.5-10.1); CREATININE 0.8 mg/dL (0.55-1.3); POTASSIUM 4.8 mmol/L (3.5-5.1); TOT PROT 7.4 g/dl (6.4-8.2)
--- NOTE | 2018-07-11 08:39 | PN ---
Progress Note, Physician - Current Medication List Current Medications: Active Medications Acetaminophen (Tylenol -) 650 mg PO Q4H PRN PRN Reason: PAIN OR FEVER Albuterol Sulfate (Ventolin 0.083% Nebulizer Soln -) 1 amp NEB Q4H PRN PRN Reason: SHORT OF BREATH/WHEEZING Albuterol/Ipratropium (Duoneb -) 1 amp NEB RQID [facility] Last Admin: 07/11/18 07:35 Dose: 1 amp Aspirin (Asa -) 81 mg PO DAILY [facility] Last Admin: 07/10/18 09:32 Dose: 81 mg Atorvastatin Calcium (Lipitor -) 40 mg PO HS [facility] Last Admin: 07/10/18 23:08 Dose: 40 mg Baclofen (Lioresal -) 10 mg PO DAILY [facility] Last Admin: 07/10/18 09:32 Dose: 10 mg Benzocaine/Menthol (Cepacol Lozenge -) 1 each MM PRN PRN PRN Reason: SORE THROAT Last Admin: 07/09/18 21:54 Dose: 1 each Docusate Sodium (Colace -) 100 mg PO DAILY [facility] Last Admin: 07/10/18 09:32 Dose: 100 mg Enoxaparin Sodium (Lovenox -) 40 mg SQ DAILY [facility] Last Admin: 07/10/18 09:31 Dose: 40 mg Ergocalciferol (Drisdol -) 50,000 unit PO Q7D@1000 [facility] Last Admin: 07/10/18 09:33 Dose: 50,000 unit Furosemide (Lasix -) 40 mg PO DAILY [facility] Last Admin: 07/10/18 09:32 Dose: 40 mg Gabapentin (Neurontin -) 300 mg PO DAILY [facility] Last Admin: 07/10/18 09:32 Dose: 300 mg Guaifenesin (Robitussin -) 10 ml PO Q4H PRN PRN Reason: COUGH Last Admin: 07/11/18 05:16 Dose: 10 ml Ceftriaxone Sodium 1 gm/ (Dextrose) 50 mls @ 100 mls/hr IVPB DAILY [facility]; Protocol Last Admin: 07/10/18 09:31 Dose: 100 mls/hr Azithromycin 250 mg/ Dextrose 250 mls @ 250 mls/hr IVPB DAILY [facility] Last Admin: 07/10/18 09:31 Dose: 250 mls/hr Insulin Aspart (Novolog Vial Sliding Scale -) 1 vial SQ ACHS [facility]; Protocol Last Admin: 07/11/18 06:25 Dose: Not Given Lisinopril (Prinivil) 5 mg PO DAILY [facility] Last Admin: 07/10/18 09:32 Dose: 5 mg Metformin HCl (Glucophage Xr -) 500 mg PO DAILY@0700 [facility] Last Admin: 07/11/18 06:25 Dose: 500 mg Methylprednisolone Sodium Succinate (Solu-Medrol -) 40 mg IVPUSH Q6H-IV [facility] Last Admin: 07/11/18 03:25 Dose: 40 mg Montelukast Sodium (Singulair -) 10 mg PO HS [facility] Last Admin: 07/10/18 23:08 Dose: 10 mg Pantoprazole Sodium (Protonix -) 40 mg PO DAILY [facility] Last Admin: 07/10/18 09:32 Dose: 40 mg Roflumilast (Daliresp -) 500 mcg PO DAILY [facility] Last Admin: 07/10/18 09:33 Dose: 500 mcg Solifenacin (Vesicare -) 5 mg PO DAILY [facility] Last Admin: 07/10/18 09:32 Dose: 5 mg - Objective Vital Signs: Vital Signs Temperature 98.3 F 07/11/18 06:00 Pulse Rate 58 L 07/11/18 06:00 Respiratory Rate 20 07/11/18 06:00 Blood Pressure 140/68 07/11/18 06:00 O2 Sat by Pulse Oximetry (%) 93 L 07/11/18 03:00 Cardiovascular: Yes: S1, S2 Respiratory: Yes: On Nasal O2, Rhonchi Gastrointestinal: Yes: Normal Bowel Sounds, Soft Labs: CBC, BMP 07/11/18 05:30 07/11/18 05:30 Assessment/Plan - Problems (1) COPD exacerbation Assessment/Plan: oxygen keep saturation > 90% singulair iv medrol q6hr iv abx for pna nebulizer pulm consult and ID consult appreciated ct chest noted for infiltrates Code(s): J44.1 - CHRONIC OBSTRUCTIVE PULMONARY DISEASE W (ACUTE) EXACERBATION (2) Pneumonia Assessment/Plan: chest ct noted iv abx zithromax and Rocephin ID and pulm eval noted Code(s): J18.9 - PNEUMONIA, UNSPECIFIED ORGANISM Qualifiers: Pneumonia type: due to unspecified organism Laterality: right Lung location: middle lobe of lung Qualified Code(s): J18.1 - Lobar pneumonia, unspecified organism (3) Diabetes Assessment/Plan: bgm- slding scale hgba1c 6.4 diabetic diet Code(s): E11.9 - TYPE 2 DIABETES MELLITUS WITHOUT COMPLICATIONS Qualifiers: Diabetes mellitus type: type 2 (4) Leukocytosis Assessment/Plan: secondary to steroids Microbiology maybe due to steroids 07/09/18 14:39 Urine - Urine Clean Catch Legionella Antigen - Final 07/09/18 14:39 Urine - Urine Clean Catch Streptococcus pneumoniae Antigen ( M - Final 07/06/18 19:18 Blood - Peripheral Venous Blood Culture - Preliminary NO GROWTH OBTAINED AFTER 72 HOURS, INCUBATION TO CONTINUE FOR 2 DAYS. 07/06/18 19:18 Blood - Peripheral Venous Blood Culture - Preliminary NO GROWTH OBTAINED AFTER 72 HOURS, INCUBATION TO CONTINUE FOR 2 DAYS. no fever iv abx for pna Code(s): D72.829 - ELEVATED WHITE BLOOD CELL COUNT, UNSPECIFIED
[2018-07-11] MEDS ORDERED: cefTRIAXone SODIUM 1 GM VIAL ONE (09:13)
[2018-07-11] MEDS ORDERED: DEXTROSE 5%-WATER - 50 ML IVPB ONE (09:14)
[2018-07-11] MEDS ORDERED: PT OWN MED DRAWER 7, Y5N ONE (09:15)
[2018-07-11] MEDS: LISINOPRIL 5 MG TABLET (FP) PO SCH (09:34)
[2018-07-11] MEDS: PANTOPRAZOLE 40 MG TABLET (FP) PO SCH (09:34)
[2018-07-11] MEDS: ASPIRIN 81 MG CHEWABLE TABLETS PO SCH (09:34)
[2018-07-11] MEDS: ROFLUMILAST 500 MCG TABLET PO SCH (09:34)
[2018-07-11] MEDS: FUROSEMIDE 40 MG TABLET (FP) PO SCH (09:34)
[2018-07-11] MEDS: SOLIFENACIN SUCCINATE 5 MG TAB (FP) PO SCH (09:34)
[2018-07-11] MEDS: GABAPENTIN 300 MG CAPSULE (FP) PO SCH (09:34)
[2018-07-11] MEDS: DOCUSATE SODIUM 100 MG CAPSULE (FP) PO SCH (09:34)
[2018-07-11] MEDS: BACLOFEN 10 MG TABLET (FP) PO SCH (09:34)
[2018-07-11] MEDS: BENZOCAINE/MENTH/CETYLPYRD CL 1 EACH LOZENGE MM PRN (09:35)
[2018-07-11] MEDS: ENOXAPARIN NA (PORCINE) 40 MG/0.4 ML DISP.SYRIN SQ SCH (09:36)
--- NOTE | 2018-07-11 10:41 | PN ---
Progress Note, Physician History of Present Illness: PULMONARY ALERT,STILL VERY DYSPNEIC WITH EXERTION,+ COUGH MIN SPUTUM - Current Medication List Current Medications: Active Medications Acetaminophen (Tylenol -) 650 mg PO Q4H PRN PRN Reason: PAIN OR FEVER Albuterol Sulfate (Ventolin 0.083% Nebulizer Soln -) 1 amp NEB Q4H PRN PRN Reason: SHORT OF BREATH/WHEEZING Albuterol/Ipratropium (Duoneb -) 1 amp NEB RQID [facility] Last Admin: 07/11/18 07:35 Dose: 1 amp Aspirin (Asa -) 81 mg PO DAILY [facility] Last Admin: 07/11/18 09:34 Dose: 81 mg Atorvastatin Calcium (Lipitor -) 40 mg PO HS [facility] Last Admin: 07/10/18 23:08 Dose: 40 mg Baclofen (Lioresal -) 10 mg PO DAILY [facility] Last Admin: 07/11/18 09:34 Dose: 10 mg Benzocaine/Menthol (Cepacol Lozenge -) 1 each MM PRN PRN PRN Reason: SORE THROAT Last Admin: 07/11/18 09:35 Dose: 1 each Docusate Sodium (Colace -) 100 mg PO DAILY [facility] Last Admin: 07/11/18 09:34 Dose: 100 mg Enoxaparin Sodium (Lovenox -) 40 mg SQ DAILY [facility] Last Admin: 07/11/18 09:36 Dose: 40 mg Ergocalciferol (Drisdol -) 50,000 unit PO Q7D@1000 [facility] Last Admin: 07/10/18 09:33 Dose: 50,000 unit Furosemide (Lasix -) 40 mg PO DAILY [facility] Last Admin: 07/11/18 09:34 Dose: 40 mg Gabapentin (Neurontin -) 300 mg PO DAILY [facility] Last Admin: 07/11/18 09:34 Dose: 300 mg Guaifenesin (Robitussin -) 10 ml PO Q4H PRN PRN Reason: COUGH Last Admin: 07/11/18 05:16 Dose: 10 ml Ceftriaxone Sodium 1 gm/ (Dextrose) 50 mls @ 100 mls/hr IVPB DAILY [facility]; Protocol Last Admin: 07/10/18 09:31 Dose: 100 mls/hr Azithromycin 250 mg/ Dextrose 250 mls @ 250 mls/hr IVPB DAILY [facility] Last Admin: 07/10/18 09:31 Dose: 250 mls/hr Insulin Aspart (Novolog Vial Sliding Scale -) 1 vial SQ ACHS [facility]; Protocol Last Admin: 07/11/18 06:25 Dose: Not Given Lisinopril (Prinivil) 5 mg PO DAILY [facility] Last Admin: 07/11/18 09:34 Dose: 5 mg Metformin HCl (Glucophage Xr -) 500 mg PO DAILY@0700 [facility] Last Admin: 07/11/18 06:25 Dose: 500 mg Methylprednisolone Sodium Succinate (Solu-Medrol -) 40 mg IVPUSH BID [facility] Montelukast Sodium (Singulair -) 10 mg PO HS [facility] Last Admin: 07/10/18 23:08 Dose: 10 mg Pantoprazole Sodium (Protonix -) 40 mg PO DAILY [facility] Last Admin: 07/11/18 09:34 Dose: 40 mg Roflumilast (Daliresp -) 500 mcg PO DAILY [facility] Last Admin: 07/11/18 09:34 Dose: 500 mcg Solifenacin (Vesicare -) 5 mg PO DAILY [facility] Last Admin: 07/11/18 09:34 Dose: 5 mg - Objective Vital Signs: Vital Signs Temperature 98.3 F 07/11/18 06:00 Pulse Rate 58 L 07/11/18 06:00 Respiratory Rate 20 07/11/18 06:00 Blood Pressure 140/68 07/11/18 06:00 O2 Sat by Pulse Oximetry (%) 93 L 07/11/18 03:00 Constitutional: Yes: Calm, Obese Eyes: Yes: WNL HENT: Yes: WNL Neck: Yes: WNL Cardiovascular: Yes: Regular Rate and Rhythm, S1, S2 Respiratory: Yes: Wheezes (SCATTERED WHEEZES) Gastrointestinal: Yes: Normal Bowel Sounds, Soft Extremities: Yes: WNL Edema: No Labs: CBC, BMP 07/11/18 05:30 07/11/18 05:30 Problem List - Problems (1) Acute respiratory failure with hypoxia and hypercarbia Code(s): J96.01 - ACUTE RESPIRATORY FAILURE WITH HYPOXIA; J96.02 - ACUTE RESPIRATORY FAILURE WITH HYPERCAPNIA (2) COPD exacerbation Code(s): J44.1 - CHRONIC OBSTRUCTIVE PULMONARY DISEASE W (ACUTE) EXACERBATION (3) Diabetes Code(s): E11.9 - TYPE 2 DIABETES MELLITUS WITHOUT COMPLICATIONS Qualifiers: Diabetes mellitus type: type 2 (4) Hypoxia Code(s): R09.02 - HYPOXEMIA (5) Pneumonia Code(s): J18.9 - PNEUMONIA, UNSPECIFIED ORGANISM Qualifiers: Pneumonia type: due to unspecified organism Laterality: right Lung location: middle lobe of lung Qualified Code(s): J18.1 - Lobar pneumonia, unspecified organism (6) Sleep apnea Code(s): G47.30 - SLEEP APNEA, UNSPECIFIED Assessment/Plan IMP ACUTE ON CHRONIC HYPOXEMIC/HYPERCAPNEIC RESPIRATORY FAILURE ADVANCED COPD WITH ACUTE EXACERBATION PNEUMONIA CHF DM HTN OSAS MORBID OBESITY TOBACCO ABUSE PLAN CONTINUE IV STEROIDS INHALED BRONCHODILATORS ABX O2 TO MAINTAIN O2 SAT 90% BIPAP AT NIGHT AND PRN MONITOR LYTES AMBULATORY O2 SAT ON RA PRIOR TO DISCHARGE TO DETERMINE IF PT IS A CANDIDATE FOR HOME O2 F/U ABG ON RA F/U CHEST X-RAYS TO CONFIRM RESOLUTION OF INFILTRATES SMOKING CESSATION COUNSELED DR TAO Problem List - Problems (1) Acute respiratory failure with hypoxia and hypercarbia Code(s): J96.01 - ACUTE RESPIRATORY FAILURE WITH HYPOXIA; J96.02 - ACUTE RESPIRATORY FAILURE WITH HYPERCAPNIA (2) COPD exacerbation Code(s): J44.1 - CHRONIC OBSTRUCTIVE PULMONARY DISEASE W (ACUTE) EXACERBATION (3) Diabetes Code(s): E11.9 - TYPE 2 DIABETES MELLITUS WITHOUT COMPLICATIONS Qualifiers: Diabetes mellitus type: type 2 (4) Hypoxia Code(s): R09.02 - HYPOXEMIA (5) Pneumonia Code(s): J18.9 - PNEUMONIA, UNSPECIFIED ORGANISM Qualifiers: Pneumonia type: due to unspecified organism Laterality: right Lung location: middle lobe of lung Qualified Code(s): J18.1 - Lobar pneumonia, unspecified organism (6) Sleep apnea Code(s): G47.30 - SLEEP APNEA, UNSPECIFIED
[2018-07-11] MEDS: CEFTRIAXONE 1 GM in DEXTROSE 5%-WATER - 50 ML IVPB SCH (10:54)
[2018-07-11] MEDS: AZITHROMYCIN IVPB 250 MG in DEXTROSE 5%-WATER - 250 ML IVPB SCH (12:24)
[2018-07-11] MEDS: MONTELUKAST NA 10 MG TABLET PO SCH (21:58)
[2018-07-11] MEDS: ATORVASTATIN CA 40 MG TABLET (FP) PO SCH (21:58)
[2018-07-11] MEDS ORDERED: methylPREDNISolone NA SUCC 40 MG/1 ML VIAL IVPUSH SCH (22:00)
[2018-07-12] MEDS: INSULIN SLIDING SCALE (NOVOLOG) 1 VIAL SQ SCH ×4 (07:06→22:27)
[2018-07-12 07:24] LABS: BASO % 0.2 % (0-2.0); HEMATOCRIT 46.9 % (32.4-45.2); HEMOGLOBIN 14.9 GM/dL (10.7-15.3); LYMPH % 8.6 % (8-40); MCH 27.1 pg (25.7-33.7); MCHC 31.7 g/dl (32.0-36.0); MEAN CELL VOLUME 85.6 fl (80-96); MEAN PLT VOLUME 8.8 fl (7.5-11.1); MONO % 6.2 % (3.8-10.2); PLATELET COUNT 235 K/MM3 (134-434); RBC 5.48 M/mm3 (3.60-5.2); RDW 15.5 % (11.6-15.6); WHITE BLOOD COUNT 10.8 K/mm3 (4.0-10.0)
[2018-07-12] MEDS: ALBUTEROL SO4 2.5/IPRATROPIUM 0.5 INH SOL 3 ML VIAL.NEB. NEB SCH ×4 (07:47→21:04)
[2018-07-12 07:56] LABS: ALBUMIN 3.2 g/dl (3.4-5.0); BILIRUBIN,TOTAL 0.5 mg/dL (0.2-1); CALCIUM 9.5 mg/dL (8.5-10.1); CREATININE 0.9 mg/dL (0.55-1.3); POTASSIUM 4.4 mmol/L (3.5-5.1); TOT PROT 7.4 g/dl (6.4-8.2)
--- NOTE | 2018-07-12 08:45 | PN ---
Progress Note, Physician - Current Medication List Current Medications: Active Medications Acetaminophen (Tylenol -) 650 mg PO Q4H PRN PRN Reason: PAIN OR FEVER Last Admin: 07/11/18 20:41 Dose: 650 mg Albuterol Sulfate (Ventolin 0.083% Nebulizer Soln -) 1 amp NEB Q4H PRN PRN Reason: SHORT OF BREATH/WHEEZING Albuterol/Ipratropium (Duoneb -) 1 amp NEB RQID [facility] Last Admin: 07/12/18 07:47 Dose: 1 amp Aspirin (Asa -) 81 mg PO DAILY [facility] Last Admin: 07/11/18 09:34 Dose: 81 mg Atorvastatin Calcium (Lipitor -) 40 mg PO HS [facility] Last Admin: 07/11/18 21:58 Dose: 40 mg Baclofen (Lioresal -) 10 mg PO DAILY [facility] Last Admin: 07/11/18 09:34 Dose: 10 mg Benzocaine/Menthol (Cepacol Lozenge -) 1 each MM PRN PRN PRN Reason: SORE THROAT Last Admin: 07/11/18 09:35 Dose: 1 each Docusate Sodium (Colace -) 100 mg PO DAILY [facility] Last Admin: 07/11/18 09:34 Dose: 100 mg Enoxaparin Sodium (Lovenox -) 40 mg SQ DAILY [facility] Last Admin: 07/11/18 09:36 Dose: 40 mg Ergocalciferol (Drisdol -) 50,000 unit PO Q7D@1000 [facility] Last Admin: 07/10/18 09:33 Dose: 50,000 unit Furosemide (Lasix -) 40 mg PO DAILY [facility] Last Admin: 07/11/18 09:34 Dose: 40 mg Gabapentin (Neurontin -) 300 mg PO DAILY [facility] Last Admin: 07/11/18 09:34 Dose: 300 mg Guaifenesin (Robitussin -) 10 ml PO Q4H PRN PRN Reason: COUGH Last Admin: 07/11/18 05:16 Dose: 10 ml Ceftriaxone Sodium 1 gm/ (Dextrose) 50 mls @ 100 mls/hr IVPB DAILY [facility]; Protocol Last Admin: 07/11/18 10:54 Dose: 100 mls/hr Azithromycin 250 mg/ Dextrose 250 mls @ 250 mls/hr IVPB DAILY [facility] Last Admin: 07/11/18 12:24 Dose: 250 mls/hr Insulin Aspart (Novolog Vial Sliding Scale -) 1 vial SQ ACHS [facility]; Protocol Last Admin: 07/12/18 07:06 Dose: Not Given Lisinopril (Prinivil) 5 mg PO DAILY [facility] Last Admin: 07/11/18 09:34 Dose: 5 mg Metformin HCl (Glucophage Xr -) 500 mg PO DAILY@0700 [facility] Last Admin: 07/12/18 07:07 Dose: 500 mg Methylprednisolone Sodium Succinate (Solu-Medrol -) 40 mg IVPUSH BID [facility] Last Admin: 07/11/18 21:59 Dose: 40 mg Montelukast Sodium (Singulair -) 10 mg PO HS [facility] Last Admin: 07/11/18 21:58 Dose: 10 mg Pantoprazole Sodium (Protonix -) 40 mg PO DAILY [facility] Last Admin: 07/11/18 09:34 Dose: 40 mg Roflumilast (Daliresp -) 500 mcg PO DAILY [facility] Last Admin: 07/11/18 09:34 Dose: 500 mcg Solifenacin (Vesicare -) 5 mg PO DAILY [facility] Last Admin: 07/11/18 09:34 Dose: 5 mg - Objective Vital Signs: Vital Signs Temperature 97.8 F 07/12/18 02:00 Pulse Rate 74 07/12/18 05:45 Respiratory Rate 20 07/12/18 05:45 Blood Pressure 127/70 07/12/18 05:45 O2 Sat by Pulse Oximetry (%) 90 L 07/12/18 07:47 Cardiovascular: Yes: S1, S2 Respiratory: Yes: On Nasal O2, Rhonchi Gastrointestinal: Yes: Normal Bowel Sounds, Soft Labs: CBC, BMP 07/12/18 06:30 07/12/18 06:30 Assessment/Plan - Problems (1) COPD exacerbation Assessment/Plan: oxygen keep saturation > 90% singulair iv medrol bid---to po iv abx for pna nebulizer pulm consult and ID consult appreciated ct chest noted for infiltrates Code(s): J44.1 - CHRONIC OBSTRUCTIVE PULMONARY DISEASE W (ACUTE) EXACERBATION (2) Pneumonia Assessment/Plan: chest ct noted iv abx zithromax and Rocephin ID and pulm eval noted Code(s): J18.9 - PNEUMONIA, UNSPECIFIED ORGANISM Qualifiers: Pneumonia type: due to unspecified organism Laterality: right Lung location: middle lobe of lung Qualified Code(s): J18.1 - Lobar pneumonia, unspecified organism (3) Diabetes Assessment/Plan: bgm- slding scale hgba1c 6.4 diabetic diet Code(s): E11.9 - TYPE 2 DIABETES MELLITUS WITHOUT COMPLICATIONS Qualifiers: Diabetes mellitus type: type 2 (4) Leukocytosis Assessment/Plan: secondary to steroids Microbiology maybe due to steroids 07/09/18 14:39 Urine - Urine Clean Catch Legionella Antigen - Final 07/09/18 14:39 Urine - Urine Clean Catch Streptococcus pneumoniae Antigen ( M - Final 07/06/18 19:18 Blood - Peripheral Venous Blood Culture - Preliminary NO GROWTH OBTAINED AFTER 72 HOURS, INCUBATION TO CONTINUE FOR 2 DAYS. 07/06/18 19:18 Blood - Peripheral Venous Blood Culture - Preliminary NO GROWTH OBTAINED AFTER 72 HOURS, INCUBATION TO CONTINUE FOR 2 DAYS. no fever iv abx for pna Code(s): D72.829 - ELEVATED WHITE BLOOD CELL COUNT, UNSPECIFIED
[2018-07-12] MEDS ORDERED: cefTRIAXone SODIUM 1 GM VIAL ONE (10:49)
[2018-07-12] MEDS ORDERED: PT OWN MED DRAWER 7, Y5N ONE (10:49)
[2018-07-12] MEDS ORDERED: DEXTROSE 5%-WATER - 50 ML IVPB ONE (10:49)
[2018-07-12] MEDS: DOCUSATE SODIUM 100 MG CAPSULE (FP) PO SCH (10:55)
[2018-07-12] MEDS: CEFTRIAXONE 1 GM in DEXTROSE 5%-WATER - 50 ML IVPB SCH (10:55)
[2018-07-12] MEDS: PANTOPRAZOLE 40 MG TABLET (FP) PO SCH (10:55)
[2018-07-12] MEDS: ASPIRIN 81 MG CHEWABLE TABLETS PO SCH (10:56)
[2018-07-12] MEDS: SOLIFENACIN SUCCINATE 5 MG TAB (FP) PO SCH (10:56)
[2018-07-12] MEDS: FUROSEMIDE 40 MG TABLET (FP) PO SCH (10:56)
[2018-07-12] MEDS: BACLOFEN 10 MG TABLET (FP) PO SCH (10:56)
[2018-07-12] MEDS: ROFLUMILAST 500 MCG TABLET PO SCH (10:56)
[2018-07-12] MEDS: GABAPENTIN 300 MG CAPSULE (FP) PO SCH (10:56)
[2018-07-12] MEDS: predniSONE 10 MG TABLET (UD) PO SCH ×2 (10:56→22:24)
[2018-07-12] MEDS: LISINOPRIL 5 MG TABLET (FP) PO SCH (10:57)
[2018-07-12] MEDS: BENZOCAINE/MENTH/CETYLPYRD CL 1 EACH LOZENGE MM PRN (10:57)
[2018-07-12] MEDS: ENOXAPARIN NA (PORCINE) 40 MG/0.4 ML DISP.SYRIN SQ SCH (10:57)
--- NOTE | 2018-07-12 11:14 | PN ---
Progress Note, Physician History of Present Illness: PULMONARY ALERT,LESS DYSPNEIC WITH EXERTION,LESS COUGH,-CP - Current Medication List Current Medications: Active Medications Acetaminophen (Tylenol -) 650 mg PO Q4H PRN PRN Reason: PAIN OR FEVER Last Admin: 07/11/18 20:41 Dose: 650 mg Albuterol Sulfate (Ventolin 0.083% Nebulizer Soln -) 1 amp NEB Q4H PRN PRN Reason: SHORT OF BREATH/WHEEZING Albuterol/Ipratropium (Duoneb -) 1 amp NEB RQID [facility] [place] Last Admin: 07/12/18 07:47 Dose: 1 amp Aspirin (Asa -) 81 mg PO DAILY [facility] Last Admin: 07/12/18 10:56 Dose: 81 mg Atorvastatin Calcium (Lipitor -) 40 mg PO HS [facility] Last Admin: 07/11/18 21:58 Dose: 40 mg Baclofen (Lioresal -) 10 mg PO DAILY [facility] [place] Last Admin: 07/12/18 10:56 Dose: 10 mg Benzocaine/Menthol (Cepacol Lozenge -) 1 each MM PRN PRN PRN Reason: SORE THROAT Last Admin: 07/12/18 10:57 Dose: 1 each Docusate Sodium (Colace -) 100 mg PO DAILY [facility] [place] Last Admin: 07/12/18 10:55 Dose: 100 mg Enoxaparin Sodium (Lovenox -) 40 mg SQ DAILY [facility] [place] Last Admin: 07/12/18 10:57 Dose: 40 mg Ergocalciferol (Drisdol -) 50,000 unit PO Q7D@1000 [facility] [place] Last Admin: 07/10/18 09:33 Dose: 50,000 unit Furosemide (Lasix -) 40 mg PO DAILY [facility] [place] Last Admin: 07/12/18 10:56 Dose: 40 mg Gabapentin (Neurontin -) 300 mg PO DAILY [facility] [place] Last Admin: 07/12/18 10:56 Dose: 300 mg Guaifenesin (Robitussin -) 10 ml PO Q4H PRN PRN Reason: COUGH Last Admin: 07/11/18 05:16 Dose: 10 ml Ceftriaxone Sodium 1 gm/ (Dextrose) 50 mls @ 100 mls/hr IVPB DAILY [facility] [place]; Protocol Last Admin: 07/12/18 10:55 Dose: 100 mls/hr Azithromycin 250 mg/ Dextrose 250 mls @ 250 mls/hr IVPB DAILY [facility] [place] Last Admin: 07/11/18 12:24 Dose: 250 mls/hr Insulin Aspart (Novolog Vial Sliding Scale -) 1 vial SQ ACHS [facility] [place]; Protocol Last Admin: 07/12/18 07:06 Dose: Not Given Lisinopril (Prinivil) 5 mg PO DAILY [facility] [place] Last Admin: 07/12/18 10:57 Dose: 5 mg Metformin HCl (Glucophage Xr -) 500 mg PO DAILY@0700 [facility] [place] Last Admin: 07/12/18 07:07 Dose: 500 mg Montelukast Sodium (Singulair -) 10 mg PO HS [facility] [place] Last Admin: 07/11/18 21:58 Dose: 10 mg Pantoprazole Sodium (Protonix -) 40 mg PO DAILY [facility] [place] Last Admin: 07/12/18 10:55 Dose: 40 mg Prednisone (Deltasone -) 30 mg PO BID [facility] [place] Last Admin: 07/12/18 10:56 Dose: 30 mg Roflumilast (Daliresp -) 500 mcg PO DAILY [facility] [place] Last Admin: 07/12/18 10:56 Dose: 500 mcg Solifenacin (Vesicare -) 5 mg PO DAILY [facility] [place] Last Admin: 07/12/18 10:56 Dose: 5 mg - Objective Vital Signs: Vital Signs Temperature 97.8 F 07/12/18 02:00 Pulse Rate 74 07/12/18 05:45 Respiratory Rate 20 07/12/18 05:45 Blood Pressure 127/70 07/12/18 05:45 O2 Sat by Pulse Oximetry (%) 90 L 07/12/18 07:47 Constitutional: Yes: Calm, Obese Eyes: Yes: WNL HENT: Yes: WNL Neck: Yes: WNL Cardiovascular: Yes: Regular Rate and Rhythm, S1, S2 Respiratory: Yes: Wheezes (BILATERAL WHEEZES) Gastrointestinal: Yes: Normal Bowel Sounds, Soft Extremities: Yes: WNL Edema: No Labs: CBC, BMP 07/12/18 06:30 07/12/18 06:30 - ....Imaging Chest X-ray: Image Reviewed Problem List - Problems (1) Acute respiratory failure with hypoxia and hypercarbia Code(s): J96.01 - ACUTE RESPIRATORY FAILURE WITH HYPOXIA; J96.02 - ACUTE RESPIRATORY FAILURE WITH HYPERCAPNIA (2) COPD exacerbation Code(s): J44.1 - CHRONIC OBSTRUCTIVE PULMONARY DISEASE W (ACUTE) EXACERBATION (3) Diabetes Code(s): E11.9 - TYPE 2 DIABETES MELLITUS WITHOUT COMPLICATIONS Qualifiers: Diabetes mellitus type: type 2 (4) Hypoxia Code(s): R09.02 - HYPOXEMIA (5) Pneumonia Code(s): J18.9 - PNEUMONIA, UNSPECIFIED ORGANISM Qualifiers: Pneumonia type: due to unspecified organism Laterality: right Lung location: middle lobe of lung Qualified Code(s): J18.1 - Lobar pneumonia, unspecified organism (6) Sleep apnea Code(s): G47.30 - SLEEP APNEA, UNSPECIFIED Assessment/Plan IMP ACUTE ON CHRONIC HYPOXEMIC/HYPERCAPNEIC RESPIRATORY FAILURE ADVANCED COPD WITH ACUTE EXACERBATION SLOWLY IMPROVING PNEUMONIA IMPROVING CHF DM HTN OSAS MORBID OBESITY TOBACCO ABUSE PLAN STEROIDS INHALED BRONCHODILATORS ABX O2 TO MAINTAIN O2 SAT 90% BIPAP AT NIGHT AND PRN MONITOR LYTES AMBULATORY O2 SAT ON RA PRIOR TO DISCHARGE TO DETERMINE IF PT IS A CANDIDATE FOR HOME O2 F/U ABG ON RA F/U CHEST X-RAYS TO CONFIRM RESOLUTION OF INFILTRATES SMOKING CESSATION PULMONARY REHAB POST DISCHARGE DR TAO Problem List - Problems (1) Acute respiratory failure with hypoxia and hypercarbia Code(s): J96.01 - ACUTE RESPIRATORY FAILURE WITH HYPOXIA; J96.02 - ACUTE RESPIRATORY FAILURE WITH HYPERCAPNIA (2) COPD exacerbation Code(s): J44.1 - CHRONIC OBSTRUCTIVE PULMONARY DISEASE W (ACUTE) EXACERBATION (3) Diabetes Code(s): E11.9 - TYPE 2 DIABETES MELLITUS WITHOUT COMPLICATIONS Qualifiers: Diabetes mellitus type: type 2 (4) Hypoxia Code(s): R09.02 - HYPOXEMIA (5) Pneumonia Code(s): J18.9 - PNEUMONIA, UNSPECIFIED ORGANISM Qualifiers: Pneumonia type: due to unspecified organism Laterality: right Lung location: middle lobe of lung Qualified Code(s): J18.1 - Lobar pneumonia, unspecified organism (6) Sleep apnea Code(s): G47.30 - SLEEP APNEA, UNSPECIFIED
[2018-07-12] MEDS: AZITHROMYCIN IVPB 250 MG in DEXTROSE 5%-WATER - 250 ML IVPB SCH (11:35)
[2018-07-12] MEDS: guaiFENesin 200 MG/10 ML 10 ML UNIT-DOSE CUPS PO PRN (17:35)
[2018-07-12] MEDS: ATORVASTATIN CA 40 MG TABLET (FP) PO SCH (22:24)
[2018-07-12] MEDS: MONTELUKAST NA 10 MG TABLET PO SCH (22:24)
[2018-07-13] MEDS: INSULIN SLIDING SCALE (NOVOLOG) 1 VIAL SQ SCH ×4 (06:56→22:41)
[2018-07-13] MEDS: ALBUTEROL SO4 2.5/IPRATROPIUM 0.5 INH SOL 3 ML VIAL.NEB. NEB SCH ×4 (08:30→20:25)
[2018-07-13] MEDS ORDERED: PT OWN MED DRAWER 7, Y5N ONE (09:39)
[2018-07-13] MEDS ORDERED: cefTRIAXone SODIUM 1 GM VIAL ONE (09:40)
[2018-07-13] MEDS ORDERED: DEXTROSE 5%-WATER - 50 ML IVPB ONE (09:40)
[2018-07-13] MEDS: predniSONE 10 MG TABLET (UD) PO SCH ×2 (10:13→22:37)
[2018-07-13] MEDS: ROFLUMILAST 500 MCG TABLET PO SCH (10:13)
[2018-07-13] MEDS: ASPIRIN 81 MG CHEWABLE TABLETS PO SCH (10:13)
[2018-07-13] MEDS: DOCUSATE SODIUM 100 MG CAPSULE (FP) PO SCH (10:13)
[2018-07-13] MEDS: BACLOFEN 10 MG TABLET (FP) PO SCH (10:14)
[2018-07-13] MEDS: LISINOPRIL 5 MG TABLET (FP) PO SCH (10:14)
[2018-07-13] MEDS: ENOXAPARIN NA (PORCINE) 40 MG/0.4 ML DISP.SYRIN SQ SCH (10:14)
[2018-07-13] MEDS: CEFTRIAXONE 1 GM in DEXTROSE 5%-WATER - 50 ML IVPB SCH (10:14)
[2018-07-13] MEDS: FUROSEMIDE 40 MG TABLET (FP) PO SCH (10:14)
[2018-07-13] MEDS: PANTOPRAZOLE 40 MG TABLET (FP) PO SCH (10:14)
[2018-07-13] MEDS: GABAPENTIN 300 MG CAPSULE (FP) PO SCH (10:14)
[2018-07-13] MEDS: SOLIFENACIN SUCCINATE 5 MG TAB (FP) PO SCH (10:15)
[2018-07-13] MEDS: AZITHROMYCIN IVPB 250 MG in DEXTROSE 5%-WATER - 250 ML IVPB SCH (10:15)
--- NOTE | 2018-07-13 12:04 | PN ---
Progress Note (short form) - Note Progress Note: Breathing better but still with some LOPEZ. Cough is improving. No fevers or chills. Intake & Output 07/10/18 07/11/18 07/12/18 07/13/18 23:59 23:59 23:59 23:59 Intake Total 490 510 100 300 Balance 490 510 100 300 Last Vital Signs Temp Pulse Resp BP Pulse Ox 98.1 F 92 H 20 128/66 93 L 07/13/18 08:58 07/13/18 08:58 07/13/18 08:58 07/13/18 08:58 07/13/18 09:25 Active Medications Acetaminophen (Tylenol -) 650 mg PO Q4H PRN PRN Reason: PAIN OR FEVER Last Admin: 07/11/18 20:41 Dose: 650 mg Albuterol Sulfate (Ventolin 0.083% Nebulizer Soln -) 1 amp NEB Q4H PRN PRN Reason: SHORT OF BREATH/WHEEZING Albuterol/Ipratropium (Duoneb -) 1 amp NEB RQID [facility] Last Admin: 07/13/18 08:30 Dose: 1 amp Aspirin (Asa -) 81 mg PO DAILY [facility] Last Admin: 07/13/18 10:13 Dose: 81 mg Atorvastatin Calcium (Lipitor -) 40 mg PO HS [facility] Last Admin: 07/12/18 22:24 Dose: 40 mg Baclofen (Lioresal -) 10 mg PO DAILY [facility] Last Admin: 07/13/18 10:14 Dose: 10 mg Benzocaine/Menthol (Cepacol Lozenge -) 1 each MM PRN PRN PRN Reason: SORE THROAT Last Admin: 07/12/18 10:57 Dose: 1 each Docusate Sodium (Colace -) 100 mg PO DAILY [facility] Last Admin: 07/13/18 10:13 Dose: 100 mg Enoxaparin Sodium (Lovenox -) 40 mg SQ DAILY [facility] Last Admin: 07/13/18 10:14 Dose: 40 mg Ergocalciferol (Drisdol -) 50,000 unit PO Q7D@1000 [facility] Last Admin: 07/10/18 09:33 Dose: 50,000 unit Furosemide (Lasix -) 40 mg PO DAILY [facility] Last Admin: 07/13/18 10:14 Dose: 40 mg Gabapentin (Neurontin -) 300 mg PO DAILY [facility] Last Admin: 07/13/18 10:14 Dose: 300 mg Guaifenesin (Robitussin -) 10 ml PO Q4H PRN PRN Reason: COUGH Last Admin: 07/12/18 17:35 Dose: 10 ml Ceftriaxone Sodium 1 gm/ (Dextrose) 50 mls @ 100 mls/hr IVPB DAILY [facility]; Protocol Last Admin: 07/13/18 10:14 Dose: 100 mls/hr Azithromycin 250 mg/ Dextrose 250 mls @ 250 mls/hr IVPB DAILY [facility] Last Admin: 07/13/18 10:15 Dose: 250 mls/hr Insulin Aspart (Novolog Vial Sliding Scale -) 1 vial SQ ACHS [facility]; Protocol Last Admin: 07/13/18 11:13 Dose: Not Given Lisinopril (Prinivil) 5 mg PO DAILY [facility] Last Admin: 07/13/18 10:14 Dose: 5 mg Metformin HCl (Glucophage Xr -) 500 mg PO DAILY@0700 [facility] Last Admin: 07/13/18 06:57 Dose: 500 mg Montelukast Sodium (Singulair -) 10 mg PO HS [facility] Last Admin: 07/12/18 22:24 Dose: 10 mg Pantoprazole Sodium (Protonix -) 40 mg PO DAILY [facility] Last Admin: 07/13/18 10:14 Dose: 40 mg Prednisone (Deltasone -) 30 mg PO BID [facility] Last Admin: 07/13/18 10:13 Dose: 30 mg Roflumilast (Daliresp -) 500 mcg PO DAILY [facility] Last Admin: 07/13/18 10:13 Dose: 500 mcg Solifenacin (Vesicare -) 5 mg PO DAILY [facility] Last Admin: 07/13/18 10:15 Dose: 5 mg Gen: Less tachypneic with speaking Heart: RRR Lung: bilateral rhonchi, no wheezes appreciated Abd: soft, nontender Ext: no edema Laboratory Results - last 24 hr 07/12/18 07/12/18 07/12/18 12:32 17:37 22:27 POC Glucometer 109 171 191 07/13/18 07/13/18 06:03 11:12 POC Glucometer 180 127 A/P Acute Hypoxic and Hypercapneic Respiratory Failure Acute COPD Exacerbation Pneumonia LV Diastolic Dysfunction Morbid Obesity HTN DM Smoker - Prednisone - inhaled bronchodilators - O2 to keep SpO2 >90% - Can consider change to PO ABX coverage - smoking cessation - DVT prophylaxis - Pre and post O2 saturation prior to D/C (will order today) Dr De La Cruz
--- NOTE | 2018-07-13 12:49 | PN ---
Progress Note, Physician Chief Complaint: patient seen and examined feeling better coughing breathing improving - Current Medication List Current Medications: Active Medications Acetaminophen (Tylenol -) 650 mg PO Q4H PRN PRN Reason: PAIN OR FEVER Last Admin: 07/11/18 20:41 Dose: 650 mg Albuterol Sulfate (Ventolin 0.083% Nebulizer Soln -) 1 amp NEB Q4H PRN PRN Reason: SHORT OF BREATH/WHEEZING Albuterol/Ipratropium (Duoneb -) 1 amp NEB RQID [facility] Last Admin: 07/13/18 08:30 Dose: 1 amp Aspirin (Asa -) 81 mg PO DAILY [facility] Last Admin: 07/13/18 10:13 Dose: 81 mg Atorvastatin Calcium (Lipitor -) 40 mg PO HS [facility] Last Admin: 07/12/18 22:24 Dose: 40 mg Baclofen (Lioresal -) 10 mg PO DAILY [facility] Last Admin: 07/13/18 10:14 Dose: 10 mg Benzocaine/Menthol (Cepacol Lozenge -) 1 each MM PRN PRN PRN Reason: SORE THROAT Last Admin: 07/12/18 10:57 Dose: 1 each Docusate Sodium (Colace -) 100 mg PO DAILY [facility] Last Admin: 07/13/18 10:13 Dose: 100 mg Enoxaparin Sodium (Lovenox -) 40 mg SQ DAILY [facility] Last Admin: 07/13/18 10:14 Dose: 40 mg Ergocalciferol (Drisdol -) 50,000 unit PO Q7D@1000 [facility] Last Admin: 07/10/18 09:33 Dose: 50,000 unit Furosemide (Lasix -) 40 mg PO DAILY [facility] Last Admin: 07/13/18 10:14 Dose: 40 mg Gabapentin (Neurontin -) 300 mg PO DAILY [facility] Last Admin: 07/13/18 10:14 Dose: 300 mg Guaifenesin (Robitussin -) 10 ml PO Q4H PRN PRN Reason: COUGH Last Admin: 07/12/18 17:35 Dose: 10 ml Ceftriaxone Sodium 1 gm/ (Dextrose) 50 mls @ 100 mls/hr IVPB DAILY [facility]; Protocol Last Admin: 07/13/18 10:14 Dose: 100 mls/hr Azithromycin 250 mg/ Dextrose 250 mls @ 250 mls/hr IVPB DAILY [facility] Last Admin: 07/13/18 10:15 Dose: 250 mls/hr Insulin Aspart (Novolog Vial Sliding Scale -) 1 vial SQ ACHS [facility]; Protocol Last Admin: 07/13/18 11:13 Dose: Not Given Lisinopril (Prinivil) 5 mg PO DAILY [facility] Last Admin: 07/13/18 10:14 Dose: 5 mg Metformin HCl (Glucophage Xr -) 500 mg PO DAILY@0700 [facility] Last Admin: 07/13/18 06:57 Dose: 500 mg Montelukast Sodium (Singulair -) 10 mg PO HS [facility] Last Admin: 07/12/18 22:24 Dose: 10 mg Pantoprazole Sodium (Protonix -) 40 mg PO DAILY [facility] Last Admin: 07/13/18 10:14 Dose: 40 mg Prednisone (Deltasone -) 30 mg PO BID [facility] Last Admin: 07/13/18 10:13 Dose: 30 mg Roflumilast (Daliresp -) 500 mcg PO DAILY [facility] Last Admin: 07/13/18 10:13 Dose: 500 mcg Solifenacin (Vesicare -) 5 mg PO DAILY [facility] Last Admin: 07/13/18 10:15 Dose: 5 mg - Objective Vital Signs: Vital Signs Temperature 98.1 F 07/13/18 08:58 Pulse Rate 92 H 07/13/18 08:58 Respiratory Rate 20 07/13/18 08:58 Blood Pressure 128/66 07/13/18 08:58 O2 Sat by Pulse Oximetry (%) 93 L 07/13/18 09:25 Constitutional: Yes: Calm Cardiovascular: Yes: Regular Rate and Rhythm, S1, S2 Respiratory: Yes: CTA Bilaterally Gastrointestinal: Yes: Soft Edema: No Neurological: Yes: Alert, Oriented Labs: CBC, BMP 07/12/18 06:30 07/12/18 06:30 Problem List - Problems (1) COPD exacerbation Assessment/Plan: oxygen keep saturation > 90% singulair iv medrol q6hr now to po prednsione with taper iv abx for pna day 6 today nebulizer pulm consult and ID consult appreciated ct chest noted for infiltrates Code(s): J44.1 - CHRONIC OBSTRUCTIVE PULMONARY DISEASE W (ACUTE) EXACERBATION (2) Pneumonia Assessment/Plan: chest ct noted iv abx zithromax and Rocephin ID and pulm eval noted Code(s): J18.9 - PNEUMONIA, UNSPECIFIED ORGANISM Qualifiers: Pneumonia type: due to unspecified organism Laterality: right Lung location: middle lobe of lung Qualified Code(s): J18.1 - Lobar pneumonia, unspecified organism (3) Diabetes Assessment/Plan: bgm- slding scale hgba1c 6.4 diabetic diet Code(s): E11.9 - TYPE 2 DIABETES MELLITUS WITHOUT COMPLICATIONS Qualifiers: Diabetes mellitus type: type 2 (4) Leukocytosis Assessment/Plan: wbc trending down Microbiology 07/09/18 14:39 Urine - Urine Clean Catch Legionella Antigen - Final 07/09/18 14:39 Urine - Urine Clean Catch Streptococcus pneumoniae Antigen ( M - Final 07/06/18 19:18 Blood - Peripheral Venous Blood Culture - Preliminary NO GROWTH OBTAINED AFTER 72 HOURS, INCUBATION TO CONTINUE FOR 2 DAYS. 07/06/18 19:18 Blood - Peripheral Venous Blood Culture - Preliminary NO GROWTH OBTAINED AFTER 72 HOURS, INCUBATION TO CONTINUE FOR 2 DAYS. no fever iv abx for pna on day 6 of abx Code(s): D72.829 - ELEVATED WHITE BLOOD CELL COUNT, UNSPECIFIED Assessment/Plan check pre and post oxygen dc home in AM if ok with ID will change to po abx
--- NOTE | 2018-07-13 14:09 | PN ---
Progress Note, Physician Chief Complaint: AWAKE, ALERT SEATED IN BED OCCASIONAL COUGH BREATHING NON-LABORED AFEBRILE, WBC IMPROVED - Current Medication List Current Medications: Active Medications Acetaminophen (Tylenol -) 650 mg PO Q4H PRN PRN Reason: PAIN OR FEVER Last Admin: 07/11/18 20:41 Dose: 650 mg Albuterol Sulfate (Ventolin 0.083% Nebulizer Soln -) 1 amp NEB Q4H PRN PRN Reason: SHORT OF BREATH/WHEEZING Albuterol/Ipratropium (Duoneb -) 1 amp NEB RQID [facility] Last Admin: 07/13/18 08:30 Dose: 1 amp Aspirin (Asa -) 81 mg PO DAILY [facility] Last Admin: 07/13/18 10:13 Dose: 81 mg Atorvastatin Calcium (Lipitor -) 40 mg PO HS [facility] Last Admin: 07/12/18 22:24 Dose: 40 mg Baclofen (Lioresal -) 10 mg PO DAILY [facility] Last Admin: 07/13/18 10:14 Dose: 10 mg Benzocaine/Menthol (Cepacol Lozenge -) 1 each MM PRN PRN PRN Reason: SORE THROAT Last Admin: 07/12/18 10:57 Dose: 1 each Docusate Sodium (Colace -) 100 mg PO DAILY [facility] Last Admin: 07/13/18 10:13 Dose: 100 mg Enoxaparin Sodium (Lovenox -) 40 mg SQ DAILY [facility] Last Admin: 07/13/18 10:14 Dose: 40 mg Ergocalciferol (Drisdol -) 50,000 unit PO Q7D@1000 [facility] Last Admin: 07/10/18 09:33 Dose: 50,000 unit Furosemide (Lasix -) 40 mg PO DAILY [facility] Last Admin: 07/13/18 10:14 Dose: 40 mg Gabapentin (Neurontin -) 300 mg PO DAILY [facility] Last Admin: 07/13/18 10:14 Dose: 300 mg Guaifenesin (Robitussin -) 10 ml PO Q4H PRN PRN Reason: COUGH Last Admin: 07/12/18 17:35 Dose: 10 ml Ceftriaxone Sodium 1 gm/ (Dextrose) 50 mls @ 100 mls/hr IVPB DAILY [facility]; Protocol Last Admin: 07/13/18 10:14 Dose: 100 mls/hr Azithromycin 250 mg/ Dextrose 250 mls @ 250 mls/hr IVPB DAILY [facility] Last Admin: 07/13/18 10:15 Dose: 250 mls/hr Insulin Aspart (Novolog Vial Sliding Scale -) 1 vial SQ ACHS [facility]; Protocol Last Admin: 07/13/18 11:13 Dose: Not Given Lisinopril (Prinivil) 5 mg PO DAILY [facility] Last Admin: 07/13/18 10:14 Dose: 5 mg Metformin HCl (Glucophage Xr -) 500 mg PO DAILY@0700 [facility] Last Admin: 07/13/18 06:57 Dose: 500 mg Montelukast Sodium (Singulair -) 10 mg PO HS [facility] Last Admin: 07/12/18 22:24 Dose: 10 mg Pantoprazole Sodium (Protonix -) 40 mg PO DAILY [facility] Last Admin: 07/13/18 10:14 Dose: 40 mg Prednisone (Deltasone -) 30 mg PO BID [facility] Last Admin: 07/13/18 10:13 Dose: 30 mg Roflumilast (Daliresp -) 500 mcg PO DAILY [facility] Last Admin: 07/13/18 10:13 Dose: 500 mcg Solifenacin (Vesicare -) 5 mg PO DAILY [facility] Last Admin: 07/13/18 10:15 Dose: 5 mg - Objective Vital Signs: Vital Signs Temperature 98.1 F 07/13/18 08:58 Pulse Rate 92 H 07/13/18 08:58 Respiratory Rate 20 07/13/18 08:58 Blood Pressure 128/66 07/13/18 08:58 O2 Sat by Pulse Oximetry (%) 93 L 07/13/18 09:25 Constitutional: Yes: Obese Cardiovascular: Yes: Regular Rate and Rhythm, S1, S2 Respiratory: Yes: Other (+ SCATTERRED RHONCHI, MILD WHEEZE B/L) Gastrointestinal: Yes: Normal Bowel Sounds, Soft, Abdomen, Obese. No: Tenderness Labs: CBC, BMP 07/12/18 06:30 07/12/18 06:30 Assessment/Plan ACUTE EXACERBATION COPD PNEUMONIA MORBID OBESITY DAY#8 ZITHROMAX/ CEFTRIAXONE MAY SUBSTITUTE CEFTIN 500MG PO BID NEXT 24HR
[2018-07-13] MEDS: ATORVASTATIN CA 40 MG TABLET (FP) PO SCH (22:37)
[2018-07-13] MEDS: MONTELUKAST NA 10 MG TABLET PO SCH (22:37)
[2018-07-13] MEDS: BENZOCAINE/MENTH/CETYLPYRD CL 1 EACH LOZENGE MM PRN (22:41)
[2018-07-14] MEDS: INSULIN SLIDING SCALE (NOVOLOG) 1 VIAL SQ SCH ×2 (06:01→12:42)
[2018-07-14] MEDS: ALBUTEROL SO4 2.5/IPRATROPIUM 0.5 INH SOL 3 ML VIAL.NEB. NEB SCH ×3 (07:15→15:32)
[2018-07-14] MEDS ORDERED: PT OWN MED DRAWER 7, Y5N ONE (10:05)
[2018-07-14] MEDS ORDERED: cefTRIAXone SODIUM 1 GM VIAL ONE (10:05)
[2018-07-14] MEDS ORDERED: DEXTROSE 5%-WATER - 50 ML IVPB ONE (10:06)
[2018-07-14 10:26] VITALS: BP 107/63; PULSE 75; TEMP 98
[2018-07-14] MEDS: LISINOPRIL 5 MG TABLET (FP) PO SCH (10:26)
[2018-07-14] MEDS: ROFLUMILAST 500 MCG TABLET PO SCH (10:26)
[2018-07-14] MEDS: predniSONE 10 MG TABLET (UD) PO SCH (10:26)
[2018-07-14] MEDS: SOLIFENACIN SUCCINATE 5 MG TAB (FP) PO SCH (10:26)
[2018-07-14] MEDS: ASPIRIN 81 MG CHEWABLE TABLETS PO SCH (10:26)
[2018-07-14] MEDS: BACLOFEN 10 MG TABLET (FP) PO SCH (10:27)
[2018-07-14] MEDS: CEFTRIAXONE 1 GM in DEXTROSE 5%-WATER - 50 ML IVPB SCH (10:27)
[2018-07-14] MEDS: DOCUSATE SODIUM 100 MG CAPSULE (FP) PO SCH (10:27)
[2018-07-14] MEDS: PANTOPRAZOLE 40 MG TABLET (FP) PO SCH (10:27)
[2018-07-14] MEDS: FUROSEMIDE 40 MG TABLET (FP) PO SCH (10:27)
[2018-07-14] MEDS: GABAPENTIN 300 MG CAPSULE (FP) PO SCH (10:27)
--- NOTE | 2018-07-14 12:24 | DS ---
Physical Examination Vital Signs: Vital Signs Temperature 98 F 07/14/18 09:00 Pulse Rate 75 07/14/18 09:00 Respiratory Rate 20 07/14/18 09:00 Blood Pressure 107/63 07/14/18 09:00 O2 Sat by Pulse Oximetry (%) 96 07/14/18 02:02 Constitutional: Yes: Calm Cardiovascular: Yes: Regular Rate and Rhythm, S1, S2 Respiratory: Yes: CTA Bilaterally, On Nasal O2 Gastrointestinal: Yes: Normal Bowel Sounds, Soft Edema: No Neurological: Yes: Alert, Oriented Labs: CBC, BMP 07/12/18 06:30 07/12/18 06:30 Discharge Summary Reason For Visit: EXACERBATION OF ASTHMA,HYPOXIA,PNEUMONIA Current Active Problems Acute respiratory failure with hypoxia and hypercarbia (Acute) Asthma exacerbation (Acute) COPD exacerbation (Acute) Diabetes (Acute) Hypoxia (Acute) Leukocytosis (Acute) Morbid obesity (Acute) Pneumonia (Acute) Sleep apnea (Acute) Hospital Course: CHIEF COMPLAINT: cough with white phlegm for 2 days and shortness of breath PCP:Dr. Nicole HISTORY OF PRESENT ILLNESS: 68 year old morbid obese female with history of hyperlipidemia, hypertension, diabetes mellitus, COPD(asthma/emphysema), not on home oxygen therapy, ongoing tobacco use, and possible CAD as she is planned for coronary angiogram arranged for next week at [facility] to exclude CAD who presents with symptoms of shortness of breath,cough with sputum for the past 2 days and fever of 103 and took Tylenol today at 2pm . On presentation to ER she had hypoxia. CT scan of chest demonstrated a pneumonia. She was given 3 duo nebulizer treatments, IV solumedrol and initiated on IV antibiotic therapy with Rocephin and Azithromycin. She denied any symptoms of chest discomfort. She is being admitted to the Medicine Service for further medical management. admitted to telemetry pna; repeat chest ct in 3 weeks iv abx now change to po copd exacerbation: prednisone, now qualifies for home oxygen Condition: Guarded - Instructions Diet, Activity, Other Instructions: home oxygen prednisone repeat chest CT non contrast in 4 weeks to see resolution of pneumonia Referrals: Rupal Nicole MD [Primary Care Provider] - 1 Week Disposition: HOME - Home Medications Comprehensive Discharge Medication List: Ambulatory Orders Albuterol 0.083% Nebulizer Jyoti [Ventolin 0.083% Nebulizer Soln -] 1 neb NEB DAILY PRN 12/08/12 Acetaminophen [Tylenol .Regular Strength -] 650 mg PO Q8H PRN #0 tablet Aspirin [ASA -] 81 mg PO DAILY #0 tab.chew 02/16/12 Docusate Sodium [Colace -] 100 mg PO DAILY #0 capsule 02/16/12 Guaifenesin AC [Robitussin AC -] 5 ml PO Q6H PRN #0 liquid 02/16/12 Montelukast Na [Singulair -] 10 mg PO HS #0 tablet 02/16/12 Pantoprazole Sodium [Protonix -] 40 mg PO DAILY #0 tablet.ec 02/16/12 Tiotropium [place] [Spiriva] 1 inh IH DAILY #0 inh 02/16/12 levoFLOXacin [Levaquin -] 500 mg PO DAILY@0600 #3 tablet 02/16/12 predniSONE [Deltasone -] 5 mg PO BID #40 tablet 02/16/12 Acetaminophen 500 mg PO BID 07/09/18 Albuterol Sulfate [Proair Hfa] 8.5 gm IH Q4H PRN 07/09/18 Aspirin [ASA -] 81 mg PO DAILY 07/09/18 Atorvastatin Ca [Lipitor] 40 mg PO HS 07/09/18 Baclofen 10 mg PO DAILY 07/09/18 Diclofenac Sodium [Diclofenac Sodium ER] 100 mg PO DAILY 07/09/18 Ergocalciferol [Vitamin D2] 50,000 unit PO Q7D@1000 07/09/18 Fluticasone/Umeclidin/Vilanter [Trelegy Ellipta 100-62.5-25] 1 each IH BID 07/09 Furosemide 40 mg PO DAILY 07/09/18 Gabapentin [Neurontin -] 300 mg PO DAILY 07/09/18 Lisinopril 5 mg PO DAILY 07/09/18 Metformin HCl [Metformin HCl ER] 500 mg PO DAILY 07/09/18 Roflumilast [Daliresp -] 500 mcg PO DAILY 07/09/18 Solifenacin Succinate [Vesicare -] 5 mg PO DAILY 07/09/18
[2018-07-14] MEDS: AZITHROMYCIN IVPB 250 MG in DEXTROSE 5%-WATER - 250 ML IVPB SCH (12:42)
[2018-07-14] MEDS ORDERED: AZITHROMYCIN 250 MG TABLET PO ONE (12:45)
--- NOTE | 2018-07-14 13:41 | PN ---
Progress Note (short form) - Note Progress Note: PULMONARY Breathing better Cough is improved No fevers or chills. VSS/afebrile Gen: Less tachypneic with speaking Heart: RRR Lung: bilateral rhonchi, no wheezes appreciated Abd: soft, nontender Ext: no edema labs/meds/notes/images reviewed Spo2 on r/a is 86% patient has O2 set up upon discharge Acute Hypoxic and Hypercapneic Respiratory Failure Acute COPD Exacerbation Pneumonia LV Diastolic Dysfunction Morbid Obesity HTN DM Smoker - Prednisone taper as outpatient - inhaled bronchodilators - O2 to keep SpO2 >90% - PO ABX coverage - smoking cessation Vikas STROUD MD
== END 2018-07-14 16:34 | disposition home or self-care (01) | DRG 193 ==
LOC: JER 16:08 → JERBED 22:52 → J4W 07-07 11:28
PROVIDERS: ADMIT Internal Medicine; ATTEND Family Medicine
PROC: 3E0F7GC Introduction of Other Therapeutic Substance into Respiratory Tract, Via Natural or Artificial Opening (ICD-10-PCS; principal; 2018-07-06)
DX: J18.1 Lobar pneumonia, unspecified organism (principal); J96.01 Acute respiratory failure with hypoxia; J96.02 Acute respiratory failure with hypercapnia; I31.3 Pericardial effusion (noninflammatory); J45.901 Unspecified asthma with (acute) exacerbation; Z68.44 Body mass index [BMI] 60.0-69.9, adult; J43.9 Emphysema, unspecified; E66.01 Morbid (severe) obesity due to excess calories; E11.9 Type 2 diabetes mellitus without complications; E78.5 Hyperlipidemia, unspecified; G47.30 Sleep apnea, unspecified; I25.2 Old myocardial infarction; I25.10 Atherosclerotic heart disease of native coronary artery without angina pectoris; F17.210 Nicotine dependence, cigarettes, uncomplicated
CPT/HCPCS: 36415; 36600; 71045-TC-FY; 71046-TC-FY; 71250-TC; 80048; 80053; 80061; 82375; 82803; 82962; 83036; 83050; 83721; 83735; 83880; 84484; 85025; 85027; 87040; 87070; 87205; 87899; 93005; 93010; 94640; 94660; 94761; 97116-GP; 97162-GP; 99285-25; J0475